=== PATIENT | female | born 1990 | race Two or more races ===

== ENCOUNTER 2018-08-10 03:26 | Inpatient (IN) | payer OTHER ==
[~2018-08-10] VITALS: Ht 162.6 cm; Wt 104.3 kg
[2018-08-10] VITALS (11 sets, daily range): BP systolic 107–168; BP diastolic 56–105
[2018-08-10 04:09] LABS: BASO # 0.1 x10^3/uL (0.0-0.2); BASO % 0 % (0-3); EOS % 0 % (0-3); HEMATOCRIT 35.6 % (36.0-47.0); LYMPH # 1.2 x10^3/uL (1.0-4.8); LYMPH % 5 % (24-48); MEAN CORPUSCULAR HEMOGLOBIN 22 pg (25-35); MEAN CORPUSCULAR HGB CONC 31 g/dL (31-37); MEAN CORPUSCULAR VOLUME 70 fL (79-100); MONO # 0.5 x10^3/uL (0.0-1.1); MONO % 2 % (0-9); NEUT # 22.8 x10^3uL (1.8-7.7); NEUT % 93 % (31-73); PLATELET COUNT 336 x10^3/uL (140-400); RED BLOOD COUNT 5.08 x10^6/uL (3.50-5.40); RED CELL DISTRIBUTION WIDTH 18.1 % (11.5-14.5); WHITE BLOOD COUNT 24.6 x10^3/uL (4.0-11.0)
[2018-08-10] MEDS ORDERED: KETOROLAC 15 MG/ML VIAL. IV ONE (04:15)
[2018-08-10] MEDS ORDERED: IV NORMAL SALINE 1000ML BAG 1,000 ML IV ONE ×2 (04:15→07:15)
[2018-08-10] MEDS ORDERED: METOCLOPRAMIDE HCL 10 MG/2 ML VIAL. IV ONE (04:15)
[2018-08-10 04:17] LABS: CALCIUM 9.6 mg/dL (8.5-10.1); GFR 65.6; POTASSIUM 4.1 mmol/L (3.5-5.1)
[2018-08-10 04:20] LABS: BILIRUBIN,URINE NEGATIVE (NEG); CLARITY,URINE CLEAR; COLOR,URINE YELLOW; NITRITE,URINE NEGATIVE (NEG); PH,URINE 6.5; PROTEIN,URINE NEGATIVE (NEG-TRACE); UROBILINOGEN,URINE 0.2 mg/dL (0.2 mg/dL)
[2018-08-10 04:26] LABS: BACTERIA,URINE MODERATE /HPF (0-FEW); RBC,URINE >40 /HPF (0-2); SQUAMOUS EPITHELIAL CELL,UR MANY /LPF
--- NOTE | 2018-08-10 04:32 | RAD ---
INDICATION: right flank pain; eval for ureteral calculi COMPARISON: None. TECHNIQUE: Axial CT images obtained through the abdomen and pelvis without contrast. Limited assessment of solid organ structures and vasculature secondary to lack of intravenous contrast.. One or more of the following individualized dose reduction techniques were utilized for this examination: 1. Automated exposure control; 2. Adjustment of the mA and/or kV according to patient size; 3. Use of iterative reconstruction technique. FINDINGS: Abdominal aorta is not well evaluated given lack of intravenous contrast. No intrahepatic bile duct dilation. There is some high density material within the gallbladder. Poor evaluation of pancreas without contrast. Spleen unremarkable. Left sided hydronephrosis and hydroureter with calcification within the left hemipelvis at expected location of left distal ureter measuring up to about 8 x 5 mm. Urinary bladder is largely decompressed. Mild prominence of the right renal pelvis as well. There are some tiny calcifications within the right hemipelvis. Cannot follow the ureter all the way through the pelvis. Small fat-containing umbilical hernia. The appendix measures up to approximately 5 mm without definite adjacent inflammatory changes at this time. Degenerative changes of the spine are suspected with early osteophyte formation and mild disc protrusions IMPRESSION: 1. Left-sided hydronephrosis and hydroureter with a calcification in the left hemipelvis which is concerning for a left distal ureter stone. 2. There is also some mild prominence of the right renal pelvis with a couple of tiny calcifications in the right hemipelvis. These tiny calcifications could be within the soft tissues however it would be difficult to exclude a tiny right distal ureter stone given this finding. Electronically signed by: Shelton Almonte MD (08/10/2018 4:29 AM) [facility]
[2018-08-10 04:36] LABS: ALBUMIN 3.5 g/dL (3.4-5.0); ALBUMIN/GLOBULIN RATIO 0.7 (1.0-1.7); MAGNESIUM 2.2 mg/dL (1.8-2.4); TOTAL BILIRUBIN 0.2 mg/dL (0.2-1.0); TOTAL PROTEIN 8.4 g/dL (6.4-8.2)
--- NOTE | 2018-08-10 04:39 | PHYS DOC ---
Past Medical History Past Medical History: No Pertinent History Past Surgical History: Other Additional Past Surgical Histo: Cyst removal from Left axilla Smoking: Cigarettes Alcohol Use: None Drug Use: None Adult General Chief Complaint Chief Complaint: ABDOMINAL PAIN HPI HPI 28 y/o female presents with report of bilateral lower back pain with radiation to abdomen which is worse on right x 1 day. Reports pain is "sharp and cramping ". Reports pain has progressively become worse. Denies known trauma. Reports associated nausea and vomiting. Denies fever/chills. Denies rash. Denies . Reports has increased urinary frequency. Review of Systems Review of Systems Constitutional: Denies fever or chills; generalized malaise Eyes: Denies change in visual acuity, redness, or eye pain [] HENT: Denies nasal congestion or sore throat [] Respiratory: Denies cough or shortness of breath [] Cardiovascular: Denies chest pain or palpitations GI: Reports abdominal pain, nausea, vomiting; denies diarrhea [] : Denies dysuria or hematuria; reports increased urinary frequency Musculoskeletal: Reports back pain; denies deformity Integument: Denies rash or skin lesions [] Neurologic: Denies headache, focal weakness or sensory changes [] Complete systems were reviewed and found to be within normal limits, except as documented in this note. Current Medications Current Medications Current Medications Medications (Trade) Dose Ordered Sig/Allison Start Time Stop Time Status Last Admin Dose Admin Fentanyl Citrate (Fentanyl 2ml Vial) 50 mcg PRN Q2HR PRN 08/10/18 05:00 Ketorolac Tromethamine (Toradol 15mg Vial) 15 mg 1X ONCE 08/10/18 04:15 08/10/18 04:16 DC 08/10/18 04:18 15 MG Metoclopramide HCl (Reglan Vial) 10 mg 1X ONCE 08/10/18 04:15 08/10/18 04:16 DC 08/10/18 04:18 10 MG Ondansetron HCl (Zofran) 4 mg PRN Q8HRS PRN 08/10/18 05:00 08/11/18 04:59 Sodium Chloride 1,000 ml @ 1,000 mls/hr 1X ONCE 08/10/18 04:15 08/10/18 05:14 DC 08/10/18 04:17 1,000 MLS/HR Tamsulosin HCl (Flomax) 0.4 mg 1X ONCE 08/10/18 05:00 08/10/18 05:01 DC 08/10/18 04:58 0.4 MG Allergies Allergies Allergies Coded Allergies Type Severity Reaction Last Updated Verified No Known Drug Allergies 08/10/18 No Physical Exam Physical Exam Constitutional: Well developed, well nourished, uncomfortable, non-toxic appearance. [] HENT: Normocephalic, atraumatic, oropharynx moist Eyes: PERRL, EOMI, conjunctiva normal, no discharge. [] Neck: Normal range of motion, no tenderness, supple Cardiovascular: Heart rate regular rhythm, no murmur [] Lungs & Thorax: Bilateral breath sounds clear to auscultation [] Abdomen: Soft, lower abdominal tenderness on palpation Skin: Warm, dry, no erythema, no rash. [] Back: No tenderness, no CVA tenderness. [] Extremities: No tenderness, ROM intact, no edema. [] Neurologic: Alert and oriented X 3, normal motor function, normal sensory function, no focal deficits noted. [] Psychologic: Affect normal, judgement normal, mood normal. [] Current Patient Data Vital Signs Vital Signs Date Time Temp Pulse Resp B/P (MAP) Pulse Ox O2 Delivery O2 Flow Rate FiO2 08/10/18 05:14 69 178/85 (116) 95 Room Air 08/10/18 03:30 98.1 18 98.1 Lab Values Laboratory Tests Test 08/10/18 03:31 08/10/18 03:35 08/10/18 03:55 Urine Collection Type Unknown Urine Color Yellow Urine Clarity Clear Urine pH 6.5 Urine Specific [place] 1.025 Urine Protein Negative mg/dL (NEG-TRACE) Urine Glucose (UA) Negative mg/dL (NEG) Urine Ketones (Stick) Negative mg/dL (NEG) Urine Blood Large (NEG) Urine Nitrite Negative (NEG) Urine Bilirubin Negative (NEG) Urine Urobilinogen Dipstick 0.2 mg/dL (0.2 mg/dL) Urine Leukocyte Esterase Small (NEG) Urine RBC >40 /HPF (0-2) Urine WBC 5-10 /HPF (0-4) Urine Squamous Epithelial Cells Many /LPF Urine Bacteria Moderate /HPF (0-FEW) Urine Mucus Marked /LPF POC Urine HCG, Qualitative Hcg negative (Negative) White Blood Count 24.6 x10^3/uL (4.0-11.0) H Red Blood Count 5.08 x10^6/uL (3.50-5.40) Hemoglobin 11.0 g/dL (12.0-15.5) L Hematocrit 35.6 % (36.0-47.0) L Mean Corpuscular Volume 70 fL (79-100) L Mean Corpuscular Hemoglobin 22 pg (25-35) L Mean Corpuscular Hemoglobin Concent 31 g/dL (31-37) Red Cell Distribution Width 18.1 % (11.5-14.5) H Platelet Count 336 x10^3/uL (140-400) Neutrophils (%) (Auto) 93 % (31-73) H Lymphocytes (%) (Auto) 5 % (24-48) L Monocytes (%) (Auto) 2 % (0-9) Eosinophils (%) (Auto) 0 % (0-3) Basophils (%) (Auto) 0 % (0-3) Neutrophils # (Auto) 22.8 x10^3uL (1.8-7.7) H Lymphocytes # (Auto) 1.2 x10^3/uL (1.0-4.8) Monocytes # (Auto) 0.5 x10^3/uL (0.0-1.1) Eosinophils # (Auto) 0.0 x10^3/uL (0.0-0.7) Basophils # (Auto) 0.1 x10^3/uL (0.0-0.2) Segmented Neutrophils % 90 % (35-66) H Lymphocytes % 9 % (24-48) L Monocytes % 1 % (0-10) Platelet Estimate Adequate (ADEQUATE) Giant Platelets Occ Hypochromasia Mod Anisocytosis Slight Microcytosis Mod Sodium Level 139 mmol/L (136-145) Potassium Level 4.1 mmol/L (3.5-5.1) Chloride Level 103 mmol/L (98-107) Carbon Dioxide Level 24 mmol/L (21-32) Anion Gap 12 (6-14) Blood Urea Nitrogen 16 mg/dL (7-20) Creatinine 1.0 mg/dL (0.6-1.0) Estimated GFR (Cockcroft-Gault) 65.6 BUN/Creatinine Ratio 16 (6-20) Glucose Level 151 mg/dL (70-99) H Lactic Acid Level 2.1 mmol/L (0.4-2.0) H Calcium Level 9.6 mg/dL (8.5-10.1) Magnesium Level 2.2 mg/dL (1.8-2.4) Total Bilirubin 0.2 mg/dL (0.2-1.0) Aspartate Amino Transferase (AST) 21 U/L (15-37) Alanine Aminotransferase (ALT) 36 U/L (14-59) Alkaline Phosphatase 95 U/L (46-116) Total Protein 8.4 g/dL (6.4-8.2) H Albumin 3.5 g/dL (3.4-5.0) Albumin/Globulin Ratio 0.7 (1.0-1.7) L Lipase 65 U/L (73-393) L Laboratory Tests 08/10/18 03:55 Laboratory Tests 08/10/18 03:55 EKG EKG [] Radiology/Procedures Radiology/Procedures PROCEDURE: CT ABDOMEN PELVIS WO CONTRAST INDICATION: right flank pain; eval for ureteral calculi COMPARISON: None. TECHNIQUE: Axial CT images obtained through the abdomen and pelvis without contrast. Limited assessment of solid organ structures and vasculature secondary to lack of intravenous contrast.. One or more of the following individualized dose reduction techniques were utilized for this examination: 1. Automated exposure control; 2. Adjustment of the mA and/or kV according to patient size; 3. Use of iterative reconstruction technique. FINDINGS: Abdominal aorta is not well evaluated given lack of intravenous contrast. No intrahepatic bile duct dilation. There is some high density material within the gallbladder. Poor evaluation of pancreas without contrast. Spleen unremarkable. Left sided hydronephrosis and hydroureter with calcification within the left hemipelvis at expected location of left distal ureter measuring up to about 8 x 5 mm. Urinary bladder is largely decompressed. Mild prominence of the right renal pelvis as well. There are some tiny calcifications within the right hemipelvis. Cannot follow the ureter all the way through the pelvis. Small fat-containing umbilical hernia. The appendix measures up to approximately 5 mm without definite adjacent inflammatory changes at this time. Degenerative changes of the spine are suspected with early osteophyte formation and mild disc protrusions IMPRESSION: 1. Left-sided hydronephrosis and hydroureter with a calcification in the left hemipelvis which is concerning for a left distal ureter stone. 2. There is also some mild prominence of the right renal pelvis with a couple of tiny calcifications in the right hemipelvis. These tiny calcifications could be within the soft tissues however it would be difficult to exclude a tiny right distal ureter stone given this finding. Electronically signed by: Shelton Almonte MD (08/10/2018 4:29 AM) [facility] Course & Med Decision Making Course & Med Decision Making Pertinent Labs and Imaging studies reviewed. (See chart for details) Patient presents with report of low back pain with radiation to abdomen R>L. Patient with associated increased urinary frequency and N/V. Pain and N/V addressed. IVF hydration given. Labs obtained and posted to chart. UA with signs of infection vs contamination. Significant microscopic hematuria noted. WBC also significantly elevated. Lactic acid 2.1. BUN/Creat stable. Empiric antibiotics given. CT abd/pelvis with findings of obstructing distal ureteral calculi of 8mm. Patient does not meet SIRS criteria at this time. Flomax also provided. Patient requiring admission for further evaluation and treatment. Discussed with Dr. Le (hospitalist) who is in agreement with admission. Attempted to discuss with Dr. Garza (urology). Unable to contact prior to shift change/ transfer to the floor. Consult placed. Discussed findings and plan with patient , who acknowledges understanding and agreement. Dragon Disclaimer Dragon Disclaimer This electronic medical record was generated, in whole or in part, using a voice recognition dictation system. Departure Departure Impression: Primary Impression: Hydronephrosis with urinary obstruction due to ureteral calculus Additional Impressions: Leukocytosis Lactic acidosis Disposition: 09 ADMITTED INPATIENT Admitting Physician: Melissa eL Condition: STABLE Referrals: NO PCP (PCP) Problem Qualifiers Additional Impressions: Leukocytosis Leukocytosis type: unspecified Qualified Codes: D72.829 - Elevated white blood cell count, unspecified MINERVA MEYERS DO Aug 10, 2018 04:39
[2018-08-10] MEDS ORDERED: fentaNYL PF VIAL 100 MCG/2 ML VIAL IV PRN ×4 (05:00→12:00)
[2018-08-10] MEDS ORDERED: fentaNYL PF VIAL 100 MCG/2 ML VIAL IV ONE ×2 (05:00→09:15)
[2018-08-10] MEDS ORDERED: ONDANSETRON PF 4 MG/2 ML VIAL. IV PRN (05:00)
[2018-08-10] MEDS ORDERED: TAMSULOSIN 0.4 MG CAP.ER.24H. PO ONE (05:00)
[2018-08-10 05:01] LABS: % LYMPHS 9 % (24-48); % MONOS 1 % (0-10); % SEGS 90 % (35-66)
[2018-08-10 05:02] LABS: ANISOCYTOSIS SLIGHT; HYPOCHROMIA MOD; MICROCYTOSIS MOD; PLT ESTIMATE ADEQUATE (ADEQUATE)
[2018-08-10] MEDS ORDERED: MORPHINE SULFATE 4 MG/ML VIAL. IV ONE (05:45)
[2018-08-10] MEDS ORDERED: cefTRIAXone IV Push 1 GM VIAL. IVP ONE (06:00)
--- NOTE | 2018-08-10 07:28 | PDOC1 ---
History and Physical Date of Admission Date of Admission DATE: 08/10/18 TIME: 07:27 Source Source: Chart review, Patient History of Present Illness History of Present Illness Ms. Pascual, 28 y/o female admit with severe, 9/10 lower back pain with radiation to abdomen. Pain is bilat, worse on right, 24 hours of severe pain , she had stones before when she was , none since. Reports pain is "sharp and cramping". Reports associated nausea and vomiting. Denies fever/chills. Denies rash. Denies . + worse urinary frequency. Past Medical History Cardiovascular: No pertinent hx Pulmonary: No pertinent hx GI: No pertinent hx Heme/Onc: No pertinent hx Rheumatologic: No pertinent hx Infectious disease: No pertinent hx Renal/: No pertinent hx Family History Family History: No Significant Social History Smoke: # pack years ALCOHOL: none Drugs: None Current Problem List Problem List Problems Medical Problems: (1) Hydronephrosis with urinary obstruction due to ureteral calculus Status: Acute (2) Lactic acidosis Status: Acute (3) Leukocytosis Status: Acute Current Medications Current Medications Current Medications Ketorolac Tromethamine (Toradol 15mg Vial) 15 mg 1X ONCE IV Last administered on 08/10/18at 04:18; Start 08/10/18 at 04:15; Stop 08/10/18 at 04:16; Status DC Sodium Chloride 1,000 ml @ 1,000 mls/hr 1X ONCE IV Last administered on at 04:17; Start 08/10/18 at 04:15; Stop 08/10/18 at 05:14; Status DC Metoclopramide HCl (Reglan Vial) 10 mg 1X ONCE IV Last administered on at 04:18; Start 08/10/18 at 04:15; Stop 08/10/18 at 04:16; Status DC Tamsulosin HCl (Flomax) 0.4 mg 1X ONCE PO Last administered on 08/10/18at 04:58 ; Start 08/10/18 at 05:00; Stop 08/10/18 at 05:01; Status DC Fentanyl Citrate (Fentanyl 2ml Vial) 50 mcg 1X ONCE IV Last administered on at 04:59; Start 08/10/18 at 05:00; Stop 08/10/18 at 05:01; Status DC Ondansetron HCl (Zofran) 4 mg PRN Q8HRS PRN IV NAUSEA/VOMITING; Start 08/10/18 at 05:00; Stop 08/11/18 at 04:59 Fentanyl Citrate (Fentanyl 2ml Vial) 50 mcg PRN Q2HR PRN IV PAIN Last administered on 08/10/18at 07:17; Start 08/10/18 at 05:00 Morphine Sulfate (Morphine Sulfate) 4 mg 1X ONCE IV Last administered on at 05:43; Start 08/10/18 at 05:45; Stop 08/10/18 at 05:46; Status DC Ceftriaxone Sodium (Rocephin) 1 gm 1X ONCE IVP Last administered on 08/10/18at 06:01; Start 08/10/18 at 06:00; Stop 08/10/18 at 06:01; Status DC Sodium Chloride 1,000 ml @ 125 mls/hr 1X ONCE IV Last administered on at 07:21; Start 08/10/18 at 07:15; Stop 08/10/18 at 15:14 Allergies Allergies: Coded Allergies: No Known Drug Allergies (Unverified , 08/10/18) ROS General: No: Chills, Night Sweats, Fatigue, Malaise, Appetite, Other PSYCHOLOGICAL ROS: No: Anxiety, Behavioral Disorder, Concentration difficultie , Decreased libido, Depression, Disorientation, Hallucinations, Hostility, Irritablity, Memory difficulties, Mood Swings, Obsessive thoughts, Other Eyes: No Blurry vision, No Decreased vision, No Double vision, No Dry eyes, No Excessive tearing, No Eye Pain, No Itchy Eyes, No Loss of vision, No Photophobia , No Scotomata, No Uses contacts, No Uses glasses, No Other HEENT: No: Heacaches, Visual Changes, Hearing change, Nasal congestion, Nasal discharge, Oral lesions, Sinus pain, Sore Throat, Epistaxis, Sneezing, Snoring, Tinnitus, Vertigo, Vocal changes, Other Respiratory: No: Cough, Hemoptysis, Orthopnea, Pleuritic Pain, Shortness of breath, SOB with excertion, Sputum Changes, Stridor, Tachypnea, Wheezing, Other Cardiovascular: No Chest Pain, No Palpitations, No Orthopnea, No Paroxysmal Noc. Dyspnea, No Edema, No Lt Headedness, No Other Gastrointestinal: No Nausea, No Vomiting, No Abdominal Pain, No Diarrhea, No Constipation, No Melena, No Hematochezia, No Other Neurological: No Behavorial Changes, No Bowel/Bladder ControlChng, No Confusion , No Dizziness, No Gait Disturbance, No Headaches, No Impaired Coord/balance, No Memory Loss, No Numbness/Tingling, No Seizures, No Speech Problems, No Tremors, No Visual Changes, No Weakness, No Other Skin: No Dry Skin, No Eczema, No Hair Changes, No Lumps, No Mole Changes, No Mottling, No Nail Changes, No Pruritus, No Rash, No Skin Lesion Changes, No Other, No Acne Physical Exam General: Alert, Oriented X3, Cooperative, No acute distress HEENT: PERRLA, EOMI Lungs: Normal air movement Heart: no murmurs Abdomen: Normal bowel sounds, Soft Rectal Exam: not examined Extremities: No cyanosis, No edema, Normal pulses Skin: No rashes Neuro: Normal speech, Normal tone, Sensation intact Psych/Mental Status: Mood NL Vitals Vitals Vital Signs Date Time Temp Pulse Resp B/P (MAP) Pulse Ox O2 Delivery O2 Flow Rate FiO2 08/10/18 07:17 Room Air 08/10/18 06:15 99.6 99 22 168/105 (126) 96 99.6 Labs Labs Laboratory Tests Test 08/10/18 03:31 08/10/18 03:35 08/10/18 03:55 Urine Collection Type Unknown Urine Color Yellow Urine Clarity Clear Urine pH 6.5 Urine Specific [place] 1.025 Urine Protein Negative mg/dL (NEG-TRACE) Urine Glucose (UA) Negative mg/dL (NEG) Urine Ketones (Stick) Negative mg/dL (NEG) Urine Blood Large (NEG) Urine Nitrite Negative (NEG) Urine Bilirubin Negative (NEG) Urine Urobilinogen Dipstick 0.2 mg/dL (0.2 mg/dL) Urine Leukocyte Esterase Small (NEG) Urine RBC >40 /HPF (0-2) Urine WBC 5-10 /HPF (0-4) Urine Squamous Epithelial Cells Many /LPF Urine Bacteria Moderate /HPF (0-FEW) Urine Mucus Marked /LPF Bedside Urine HCG, Qualitative Hcg negative (Negative) White Blood Count 24.6 x10^3/uL (4.0-11.0) Red Blood Count 5.08 x10^6/uL (3.50-5.40) Hemoglobin 11.0 g/dL (12.0-15.5) Hematocrit 35.6 % (36.0-47.0) Mean Corpuscular Volume 70 fL (79-100) Mean Corpuscular Hemoglobin 22 pg (25-35) Mean Corpuscular Hemoglobin Concent 31 g/dL (31-37) Red Cell Distribution Width 18.1 % (11.5-14.5) Platelet Count 336 x10^3/uL (140-400) Neutrophils (%) (Auto) 93 % (31-73) Lymphocytes (%) (Auto) 5 % (24-48) Monocytes (%) (Auto) 2 % (0-9) Eosinophils (%) (Auto) 0 % (0-3) Basophils (%) (Auto) 0 % (0-3) Neutrophils # (Auto) 22.8 x10^3uL (1.8-7.7) Lymphocytes # (Auto) 1.2 x10^3/uL (1.0-4.8) Monocytes # (Auto) 0.5 x10^3/uL (0.0-1.1) Eosinophils # (Auto) 0.0 x10^3/uL (0.0-0.7) Basophils # (Auto) 0.1 x10^3/uL (0.0-0.2) Segmented Neutrophils % 90 % (35-66) Lymphocytes % 9 % (24-48) Monocytes % 1 % (0-10) Platelet Estimate Adequate (ADEQUATE) Giant Platelets Occ Hypochromasia Mod Anisocytosis Slight Microcytosis Mod Sodium Level 139 mmol/L (136-145) Potassium Level 4.1 mmol/L (3.5-5.1) Chloride Level 103 mmol/L (98-107) Carbon Dioxide Level 24 mmol/L (21-32) Anion Gap 12 (6-14) Blood Urea Nitrogen 16 mg/dL (7-20) Creatinine 1.0 mg/dL (0.6-1.0) Estimated GFR (Cockcroft-Gault) 65.6 BUN/Creatinine Ratio 16 (6-20) Glucose Level 151 mg/dL (70-99) Lactic Acid Level 2.1 mmol/L (0.4-2.0) Calcium Level 9.6 mg/dL (8.5-10.1) Magnesium Level 2.2 mg/dL (1.8-2.4) Total Bilirubin 0.2 mg/dL (0.2-1.0) Aspartate Amino Transf (AST/SGOT) 21 U/L (15-37) Alanine Aminotransferase (ALT/SGPT) 36 U/L (14-59) Alkaline Phosphatase 95 U/L (46-116) Total Protein 8.4 g/dL (6.4-8.2) Albumin 3.5 g/dL (3.4-5.0) Albumin/Globulin Ratio 0.7 (1.0-1.7) Lipase 65 U/L (73-393) Laboratory Tests Test 08/10/18 03:31 08/10/18 03:35 08/10/18 03:55 Urine Collection Type Unknown Urine Color Yellow Urine Clarity Clear Urine pH 6.5 Urine Specific [place] 1.025 Urine Protein Negative mg/dL (NEG-TRACE) Urine Glucose (UA) Negative mg/dL (NEG) Urine Ketones (Stick) Negative mg/dL (NEG) Urine Blood Large (NEG) Urine Nitrite Negative (NEG) Urine Bilirubin Negative (NEG) Urine Urobilinogen Dipstick 0.2 mg/dL (0.2 mg/dL) Urine Leukocyte Esterase Small (NEG) Urine RBC >40 /HPF (0-2) Urine WBC 5-10 /HPF (0-4) Urine Squamous Epithelial Cells Many /LPF Urine Bacteria Moderate /HPF (0-FEW) Urine Mucus Marked /LPF Bedside Urine HCG, Qualitative Hcg negative (Negative) White Blood Count 24.6 x10^3/uL (4.0-11.0) Red Blood Count 5.08 x10^6/uL (3.50-5.40) Hemoglobin 11.0 g/dL (12.0-15.5) Hematocrit 35.6 % (36.0-47.0) Mean Corpuscular Volume 70 fL (79-100) Mean Corpuscular Hemoglobin 22 pg (25-35) Mean Corpuscular Hemoglobin Concent 31 g/dL (31-37) Red Cell Distribution Width 18.1 % (11.5-14.5) Platelet Count 336 x10^3/uL (140-400) Neutrophils (%) (Auto) 93 % (31-73) Lymphocytes (%) (Auto) 5 % (24-48) Monocytes (%) (Auto) 2 % (0-9) Eosinophils (%) (Auto) 0 % (0-3) Basophils (%) (Auto) 0 % (0-3) Neutrophils # (Auto) 22.8 x10^3uL (1.8-7.7) Lymphocytes # (Auto) 1.2 x10^3/uL (1.0-4.8) Monocytes # (Auto) 0.5 x10^3/uL (0.0-1.1) Eosinophils # (Auto) 0.0 x10^3/uL (0.0-0.7) Basophils # (Auto) 0.1 x10^3/uL (0.0-0.2) Segmented Neutrophils % 90 % (35-66) Lymphocytes % 9 % (24-48) Monocytes % 1 % (0-10) Platelet Estimate Adequate (ADEQUATE) Giant Platelets Occ Hypochromasia Mod Anisocytosis Slight Microcytosis Mod Sodium Level 139 mmol/L (136-145) Potassium Level 4.1 mmol/L (3.5-5.1) Chloride Level 103 mmol/L (98-107) Carbon Dioxide Level 24 mmol/L (21-32) Anion Gap 12 (6-14) Blood Urea Nitrogen 16 mg/dL (7-20) Creatinine 1.0 mg/dL (0.6-1.0) Estimated GFR (Cockcroft-Gault) 65.6 BUN/Creatinine Ratio 16 (6-20) Glucose Level 151 mg/dL (70-99) Lactic Acid Level 2.1 mmol/L (0.4-2.0) Calcium Level 9.6 mg/dL (8.5-10.1) Magnesium Level 2.2 mg/dL (1.8-2.4) Total Bilirubin 0.2 mg/dL (0.2-1.0) Aspartate Amino Transf (AST/SGOT) 21 U/L (15-37) Alanine Aminotransferase (ALT/SGPT) 36 U/L (14-59) Alkaline Phosphatase 95 U/L (46-116) Total Protein 8.4 g/dL (6.4-8.2) Albumin 3.5 g/dL (3.4-5.0) Albumin/Globulin Ratio 0.7 (1.0-1.7) Lipase 65 U/L (73-393) VTE Prophylaxis Ordered VTE Prophylaxis Devices: No VTE Pharmacological Prophylaxi: Yes Assessment/Plan Assessment/Plan Acute abd and flank pain Renal colic SIRS, leukocytosis, UA looks OK, obesiety, BMI 39 admit ROSA CHISHOLM MD Aug 10, 2018 07:27
--- NOTE | 2018-08-10 07:45 | NUR ---
Pt arrived to unit prior to shift change. This RN completed admission assessment and called consult to Dr Garza. Allergies verified, Pt up ad raymond, NPO, call light in reach.
--- NOTE | 2018-08-10 09:24 | PDOC2 ---
XIOMYSOFIA Thuan CHECKER STOCKER 08/10/18 0924: UROLOGY CONSULT Date of Consult Date of Consult DATE: 08/10/18 TIME: 09:13 Identification/Chief Complaint Chief Complaint Flank pain/kidney stones Source Source: Caregiver, Chart review, Patient History of Present Illness Reason for Visit: This 28 year old female presented through the ER with left flank pain, although now she says she is having pain bilaterally in her lower abdomen and bilaterally across her flanks and rating is 8/10 in these areas. This is not the first time she has had a kidney stone. She had a kidney stone one other time a few years back durine a but she passed this one without much intervention. She does have some dysuria but has not seen any blood in her urine. Past Medical History Cardiovascular: No pertinent hx Pulmonary: No pertinent hx GI: No pertinent hx Heme/Onc: No pertinent hx Rheumatologic: No pertinent hx Infectious disease: No pertinent hx Renal/: No pertinent hx Grav: 2 Para: 2 Family History Family History: No Significant Social History # pack years ALCOHOL: none Drugs: None Current Problem List Problems: (1) Hydronephrosis with urinary obstruction due to ureteral calculus Current Medications Current Medications Current Medications Ceftriaxone Sodium (Rocephin) 1 gm 1X ONCE IVP Last administered on 08/10/18at 06:01; Start 08/10/18 at 06:00; Stop 08/10/18 at 06:01; Status DC Fentanyl Citrate (Fentanyl 2ml Vial) 50 mcg 1X ONCE IV Last administered on at 04:59; Start 08/10/18 at 05:00; Stop 08/10/18 at 05:01; Status DC Fentanyl Citrate (Fentanyl 2ml Vial) 50 mcg PRN Q2HR PRN IV PAIN Last administered on 08/10/18at 07:17; Start 08/10/18 at 05:00; Stop 08/10/18 at 09:02 ; Status DC Fentanyl Citrate (Fentanyl 2ml Vial) 75 mcg PRN Q2HR PRN IV PAIN; Start at 09:15 Fentanyl Citrate (Fentanyl 2ml Vial) 100 mcg 1X ONCE IV ; Start 08/10/18 at 09: 15; Stop 08/10/18 at 09:16 Ketorolac Tromethamine (Toradol 15mg Vial) 15 mg 1X ONCE IV Last administered on 08/10/18at 04:18; Start 08/10/18 at 04:15; Stop 08/10/18 at 04:16; Status DC Metoclopramide HCl (Reglan Vial) 10 mg 1X ONCE IV Last administered on at 04:18; Start 08/10/18 at 04:15; Stop 08/10/18 at 04:16; Status DC Morphine Sulfate (Morphine Sulfate) 4 mg 1X ONCE IV Last administered on at 05:43; Start 08/10/18 at 05:45; Stop 08/10/18 at 05:46; Status DC Ondansetron HCl (Zofran) 4 mg PRN Q8HRS PRN IV NAUSEA/VOMITING; Start 08/10/18 at 05:00; Stop 08/11/18 at 04:59 Sodium Chloride 1,000 ml @ 125 mls/hr 1X ONCE IV Last administered on at 07:21; Start 08/10/18 at 07:15; Stop 08/10/18 at 15:14 Sodium Chloride 1,000 ml @ 1,000 mls/hr 1X ONCE IV Last administered on at 04:17; Start 08/10/18 at 04:15; Stop 08/10/18 at 05:14; Status DC Tamsulosin HCl (Flomax) 0.4 mg 1X ONCE PO Last administered on 08/10/18at 04:58 ; Start 08/10/18 at 05:00; Stop 08/10/18 at 05:01; Status DC Allergies Allergies: Coded Allergies: No Known Drug Allergies (Unverified , 08/10/18) ROS Review Of Systems: CONSTITUTIONAL: No fever or chills EYES: No recent changes SKIN: No rash or itching CARDIOVASCULAR: No chest pain, syncope, palpitations, or edema RESPIRATORY: No SOB or cough GASTROINTESTINAL: + abdominal pain, bilateral flanks, bilateral lower abdominal NEUROLOGICAL: No headaches or weakness ENDOCRINE: No cold or heat intolerance GENITOURINARY: No urgency or frequency of urination MUSCULOSKELETAL: No back pain or joint pain LYMPHATICS: No enlarged lymph nodes PSYCHIATRIC: No anxiety or depression Physical Exam Physical Exam: General: Pleasant, mild distress from pain, well groomed Eyes: conjunctiva anicteric, eyes full range of motion ENT: moist oral mucosa, normal dentition Neck: Trachea midline, no masses Respiratory: unlabored breathing, not using accessory muscles, Back: Bilateral flank tenderness on CVA testing Abdomen: + tender bilateral lower quadrants. Skin: no rashes or skin lesions on visualized skin Psych: normal mood, affect. Alert and oriented x 3. Vitals VITALS Vital Signs Date Time Temp Pulse Resp B/P (MAP) Pulse Ox O2 Delivery O2 Flow Rate FiO2 08/10/18 07:17 Room Air 08/10/18 06:15 99.6 99 22 168/105 (126) 96 99.6 Labs Labs Laboratory Tests Test 08/10/18 03:31 08/10/18 03:35 08/10/18 03:55 08/10/18 08:10 Urine Collection Type Unknown Urine Color Yellow Urine Clarity Clear Urine pH 6.5 Urine Specific Pierce 1.025 Urine Protein Negative mg/dL (NEG-TRACE) Urine Glucose (UA) Negative mg/dL (NEG) Urine Ketones (Stick) Negative mg/dL (NEG) Urine Blood Large (NEG) Urine Nitrite Negative (NEG) Urine Bilirubin Negative (NEG) Urine Urobilinogen Dipstick 0.2 mg/dL (0.2 mg/dL) Urine Leukocyte Esterase Small (NEG) Urine RBC >40 /HPF (0-2) Urine WBC 5-10 /HPF (0-4) Urine Squamous Epithelial Cells Many /LPF Urine Bacteria Moderate /HPF (0-FEW) Urine Mucus Marked /LPF Bedside Urine HCG, Qualitative Hcg negative (Negative) White Blood Count 24.6 x10^3/uL (4.0-11.0) Red Blood Count 5.08 x10^6/uL (3.50-5.40) Hemoglobin 11.0 g/dL (12.0-15.5) Hematocrit 35.6 % (36.0-47.0) Mean Corpuscular Volume 70 fL (79-100) Mean Corpuscular Hemoglobin 22 pg (25-35) Mean Corpuscular Hemoglobin Concent 31 g/dL (31-37) Red Cell Distribution Width 18.1 % (11.5-14.5) Platelet Count 336 x10^3/uL (140-400) Neutrophils (%) (Auto) 93 % (31-73) Lymphocytes (%) (Auto) 5 % (24-48) Monocytes (%) (Auto) 2 % (0-9) Eosinophils (%) (Auto) 0 % (0-3) Basophils (%) (Auto) 0 % (0-3) Neutrophils # (Auto) 22.8 x10^3uL (1.8-7.7) Lymphocytes # (Auto) 1.2 x10^3/uL (1.0-4.8) Monocytes # (Auto) 0.5 x10^3/uL (0.0-1.1) Eosinophils # (Auto) 0.0 x10^3/uL (0.0-0.7) Basophils # (Auto) 0.1 x10^3/uL (0.0-0.2) Segmented Neutrophils % 90 % (35-66) Lymphocytes % 9 % (24-48) Monocytes % 1 % (0-10) Platelet Estimate Adequate (ADEQUATE) Giant Platelets Occ Hypochromasia Mod Anisocytosis Slight Microcytosis Mod Sodium Level 139 mmol/L (136-145) Potassium Level 4.1 mmol/L (3.5-5.1) Chloride Level 103 mmol/L (98-107) Carbon Dioxide Level 24 mmol/L (21-32) Anion Gap 12 (6-14) Blood Urea Nitrogen 16 mg/dL (7-20) Creatinine 1.0 mg/dL (0.6-1.0) Estimated GFR (Cockcroft-Gault) 65.6 BUN/Creatinine Ratio 16 (6-20) Glucose Level 151 mg/dL (70-99) Lactic Acid Level 2.1 mmol/L (0.4-2.0) 2.1 mmol/L (0.4-2.0) Calcium Level 9.6 mg/dL (8.5-10.1) Magnesium Level 2.2 mg/dL (1.8-2.4) Total Bilirubin 0.2 mg/dL (0.2-1.0) Aspartate Amino Transf (AST/SGOT) 21 U/L (15-37) Alanine Aminotransferase (ALT/SGPT) 36 U/L (14-59) Alkaline Phosphatase 95 U/L (46-116) Total Protein 8.4 g/dL (6.4-8.2) Albumin 3.5 g/dL (3.4-5.0) Albumin/Globulin Ratio 0.7 (1.0-1.7) Lipase 65 U/L (73-393) Laboratory Tests Test 08/10/18 03:31 08/10/18 03:35 08/10/18 03:55 08/10/18 08:10 Urine Collection Type Unknown Urine Color Yellow Urine Clarity Clear Urine pH 6.5 Urine Specific Pierce 1.025 Urine Protein Negative mg/dL (NEG-TRACE) Urine Glucose (UA) Negative mg/dL (NEG) Urine Ketones (Stick) Negative mg/dL (NEG) Urine Blood Large (NEG) Urine Nitrite Negative (NEG) Urine Bilirubin Negative (NEG) Urine Urobilinogen Dipstick 0.2 mg/dL (0.2 mg/dL) Urine Leukocyte Esterase Small (NEG) Urine RBC >40 /HPF (0-2) Urine WBC 5-10 /HPF (0-4) Urine Squamous Epithelial Cells Many /LPF Urine Bacteria Moderate /HPF (0-FEW) Urine Mucus Marked /LPF Bedside Urine HCG, Qualitative Hcg negative (Negative) White Blood Count 24.6 x10^3/uL (4.0-11.0) Red Blood Count 5.08 x10^6/uL (3.50-5.40) Hemoglobin 11.0 g/dL (12.0-15.5) Hematocrit 35.6 % (36.0-47.0) Mean Corpuscular Volume 70 fL (79-100) Mean Corpuscular Hemoglobin 22 pg (25-35) Mean Corpuscular Hemoglobin Concent 31 g/dL (31-37) Red Cell Distribution Width 18.1 % (11.5-14.5) Platelet Count 336 x10^3/uL (140-400) Neutrophils (%) (Auto) 93 % (31-73) Lymphocytes (%) (Auto) 5 % (24-48) Monocytes (%) (Auto) 2 % (0-9) Eosinophils (%) (Auto) 0 % (0-3) Basophils (%) (Auto) 0 % (0-3) Neutrophils # (Auto) 22.8 x10^3uL (1.8-7.7) Lymphocytes # (Auto) 1.2 x10^3/uL (1.0-4.8) Monocytes # (Auto) 0.5 x10^3/uL (0.0-1.1) Eosinophils # (Auto) 0.0 x10^3/uL (0.0-0.7) Basophils # (Auto) 0.1 x10^3/uL (0.0-0.2) Segmented Neutrophils % 90 % (35-66) Lymphocytes % 9 % (24-48) Monocytes % 1 % (0-10) Platelet Estimate Adequate (ADEQUATE) Giant Platelets Occ Hypochromasia Mod Anisocytosis Slight Microcytosis Mod Sodium Level 139 mmol/L (136-145) Potassium Level 4.1 mmol/L (3.5-5.1) Chloride Level 103 mmol/L (98-107) Carbon Dioxide Level 24 mmol/L (21-32) Anion Gap 12 (6-14) Blood Urea Nitrogen 16 mg/dL (7-20) Creatinine 1.0 mg/dL (0.6-1.0) Estimated GFR (Cockcroft-Gault) 65.6 BUN/Creatinine Ratio 16 (6-20) Glucose Level 151 mg/dL (70-99) Lactic Acid Level 2.1 mmol/L (0.4-2.0) 2.1 mmol/L (0.4-2.0) Calcium Level 9.6 mg/dL (8.5-10.1) Magnesium Level 2.2 mg/dL (1.8-2.4) Total Bilirubin 0.2 mg/dL (0.2-1.0) Aspartate Amino Transf (AST/SGOT) 21 U/L (15-37) Alanine Aminotransferase (ALT/SGPT) 36 U/L (14-59) Alkaline Phosphatase 95 U/L (46-116) Total Protein 8.4 g/dL (6.4-8.2) Albumin 3.5 g/dL (3.4-5.0) Albumin/Globulin Ratio 0.7 (1.0-1.7) Lipase 65 U/L (73-393) Images Images 1. Left-sided hydronephrosis and hydroureter with a calcification in the left hemipelvis which is concerning for a left distal ureter stone. 2. There is also some mild prominence of the right renal pelvis with a couple of tiny calcifications in the right hemipelvis. These tiny calcifications could be within the soft tissues however it would be difficult to exclude a tiny right distal ureter stone given this finding. Assessment/Plan Assessment/Plan Continue NPO status with exception of ice chips and sips of water with meds. Continue pain control, nausea control Continue IVF Nursing to strain urine. Discussed plan of care with attending RN and Dr. Smith who has accepted the patient for surgery Cipro director of instructional technology to OR Consents entered. SAMIA SMITH MD 08/10/18 1412: UROLOGY CONSULT Assessment/Plan Assessment/Plan 8mm left distal stone. uti leucocytosis will stent for left renal unit decompression. delayed URS once urine sterility is achieved. SOFIA STAUFFER APRN Aug 10, 2018 09:24 SAMIA SMITH MD Aug 10, 2018 14:12
[2018-08-10] MEDS ORDERED: PHENAZOPYRIDINE 200 MG TABLET. PO PRN (09:30)
--- NOTE | 2018-08-10 09:36 | NUR ---
SW reviewed pt's medical chart and evaluated for dc needs. Pt was admitted for back and abdominal pain. PT/OT has not been ordered. There are no dc needs at this time. SW will be available if pt's condition changes and dc planning is required.
--- NOTE | 2018-08-10 09:50 | NUR ---
Pt resting comfortably, reports her pain level has decreased. Fentanyl x1 order will not be administered at this time.
[2018-08-10] MEDS ORDERED: IV RINGERS,LACTATED 1000ML 1,000 ML IV SCH (11:57)
[2018-08-10] MEDS ORDERED: LIDOCAINE 1% PF 2 ML VIAL. ID PRN (12:00)
[2018-08-10] MEDS ORDERED: MORPHINE SULFATE 4 MG/ML VIAL. IV PRN (12:00)
[2018-08-10] MEDS ORDERED: PROCHLORPERAZINE 10 MG/2 ML VIAL. IV PRN (12:00)
[2018-08-10] MEDS ORDERED: HYDROmorphone 2 MG/ML VIAL IV PRN (12:00)
[2018-08-10] MEDS ORDERED: CIPROFLOXACIN 400MG PREMIX 200 ML IV ONE (13:30)
[2018-08-10] MEDS ORDERED: LIDOCAINE 2% JELLY 6ML IN APPLICATOR. ONE ×2 (14:08→14:09)
[2018-08-10] MEDS ORDERED: IOHEXOL 300 MG/ML 100ML VIAL. ONE (14:08)
[2018-08-10] MEDS ORDERED: fentaNYL PF VIAL 100 MCG/2 ML VIAL ONE (14:38)
[2018-08-10] MEDS ORDERED: SEVOFLURANE 31 TO 60 MINUTES. IH ONE (14:47)
[2018-08-10] MEDS ORDERED: LIDOCAINE 2% PF 5 ML VIAL. ONE (14:47)
[2018-08-10] MEDS ORDERED: DEXAMETHASONE SOD PHOS 20 MG/5 ML VIAL. ONE (14:47)
[2018-08-10] MEDS ORDERED: ONDANSETRON PF 4 MG/2 ML VIAL. ONE (14:47)
[2018-08-10] MEDS ORDERED: PROPOFOL 20 ML IV ONE (14:47)
--- NOTE | 2018-08-10 14:52 | PDOC4 ---
OPERATIVE NOTE Date: Date: Aug 10, 2018 Pre-Op Diagnosis: left ureter stone uti Post-Op Diagnosis: same Procedure Performed: left rpg left stent Surgeon: Anesthesia Type: ga Blood Loss: 0ml Specimans Obtained: none Findings: left distal stone pus behind stone Complications: none evident SAMIA ZACARIAS MD Aug 10, 2018 14:52
--- NOTE | 2018-08-10 15:18 | OP ---
DATE OF SURGERY: 08/10/2018 PREOPERATIVE DIAGNOSES: Left ureter stone, urinary tract infection and leukocytosis. POSTOPERATIVE DIAGNOSES: Left ureter stone, urinary tract infection and leukocytosis. PROCEDURE: 1. Left retrograde pyelography interpretation. 2. Left stent placement. SURGEON: Roslyn Smith MD. ANESTHESIA: General. CONDITION: Stable. COMPLICATIONS: None. ESTIMATED BLOOD LOSS: Zero. PROCEDURE IN DETAIL: The patient was taken back to the procedure room and placed under general anesthesia in supine position per the protocol. She was prepped and draped in usual sterile fashion in dorsal lithotomy position. She was prepped and draped in the usual sterile fashion in dorsal lithotomy position. Timeout was performed. SCDs were attached. IV antibiotics were administered. A 21-Finnish rigid cystoscope was advanced per urethra into the bladder. A systemic review of the bladder visualized no foreign body, stone or tumors. She had cloudy urine, which was drained. Left hemitrigone was visualized with ureteral orifice in orthotopic and patent position. This was cannulated with a 5-Finnish open-ended ureteral catheter. A gentle retrograde pyelography was visualized distal ureter filling defect with [id number] hydronephrosis. A sensor wire was placed over the Poll[place], past the stone into the kidney. A 6 x 26 stent was placed with purulent urinary return after we went past the stone, the bladder was emptied. The patient was awakened, taken to PACU in stable condition. DISPOSITION: We will treat for the UTI for the next 2 weeks. She will come back as outpatient for delayed ureteroscopy once urine sterility is achieved. ROSLYN SMITH MD DR: FERNANDO/nts JOB#: [id number] / [id number]
[2018-08-10] MEDS: IV NORMAL SALINE 1000ML BAG 1,000 ML IV SCH (16:15)
--- NOTE | 2018-08-10 16:15 | NUR ---
Pt to OR by bed at 1325 and returned by bed at 1615. Report given to and received from LILLIAN Mendoza. Orders for IVFs and oral antibiotics requested to Dr Le. Frequent vital signs initiated, food and fluid offered. Pt denies pain or discomfort at time of arrival from PACU.
[2018-08-10] MEDS: CIPROFLOXACIN HCL 250 MG TABLET. PO SCH (20:42)
[2018-08-11] MEDS: IV NORMAL SALINE 1000ML BAG 1,000 ML IV SCH ×3 (00:13→22:15)
[2018-08-11 03:08] VITALS: BP 106/65
[2018-08-11 05:10] LABS: BASO % 0 % (0-3); EOS % 0 % (0-3); HEMATOCRIT 31.1 % (36.0-47.0); HEMOGLOBIN 9.7 g/dL (12.0-15.5); LYMPH # 1.6 x10^3/uL (1.0-4.8); LYMPH % 6 % (24-48); MEAN CORPUSCULAR HEMOGLOBIN 22 pg (25-35); MEAN CORPUSCULAR HGB CONC 31 g/dL (31-37); MEAN CORPUSCULAR VOLUME 71 fL (79-100); MONO # 1.6 x10^3/uL (0.0-1.1); MONO % 6 % (0-9); NEUT # 25.3 x10^3uL (1.8-7.7); NEUT % 89 % (31-73); PLATELET COUNT 231 x10^3/uL (140-400); RED CELL DISTRIBUTION WIDTH 18.7 % (11.5-14.5); WHITE BLOOD COUNT 28.5 x10^3/uL (4.0-11.0)
[2018-08-11 05:27] LABS: CALCIUM 8.5 mg/dL (8.5-10.1); CREATININE 0.7 mg/dL (0.6-1.0); GFR 98.9
[2018-08-11 07:00] VITALS: BP 139/76
--- NOTE | 2018-08-11 08:30 | NUR ---
Pt triggered positive for sepsis again this morning, IPC and Dr Smith who was on unit at the time notified. Orders received from Dr Smith to start Pt on IV Gentamicin per pharmacy.
[2018-08-11] MEDS: CIPROFLOXACIN HCL 250 MG TABLET. PO SCH ×2 (08:51→21:00)
[2018-08-11] MEDS: oxyCODONE/APAP 5/325 1 TAB TABLET PO PRN ×3 (08:59→20:59)
--- NOTE | 2018-08-11 09:13 | PDOC ---
Progress Note Subjective Subjective feels better. AF VSSN. Wants to go home. ROS ROS No nausea No vomiting No pain No rash Vital Sign Vital Signs Vital Signs Date Time Temp Pulse Resp B/P (MAP) Pulse Ox O2 Delivery O2 Flow Rate FiO2 08/11/18 08:59 Room Air 08/11/18 03:08 98.3 62 18 106/65 (79) 95 98.3 08/10/18 15:15 3 Physical Exam PHYSICAL EXAM GENERAL: NAD, Alert HEENT: PERRL, OC/OP NECK: Supple, no JVD, no LN LUNGS: Clear HEART: S1S2, no gallop, no murmur ABD: Soft, NT, no organomegaly, no rebound EXT: No edema, no cyanosis DIRECTOR OF OUTSIDE SALES: Alert, oriented x 3, no focal neurologic deficit SKIN: No rash IV: ok Labs Lab Laboratory Tests Test 08/11/18 04:30 White Blood Count 28.5 x10^3/uL (4.0-11.0) Red Blood Count 4.40 x10^6/uL (3.50-5.40) Hemoglobin 9.7 g/dL (12.0-15.5) Hematocrit 31.1 % (36.0-47.0) Mean Corpuscular Volume 71 fL (79-100) Mean Corpuscular Hemoglobin 22 pg (25-35) Mean Corpuscular Hemoglobin Concent 31 g/dL (31-37) Red Cell Distribution Width 18.7 % (11.5-14.5) Platelet Count 231 x10^3/uL (140-400) Neutrophils (%) (Auto) 89 % (31-73) Lymphocytes (%) (Auto) 6 % (24-48) Monocytes (%) (Auto) 6 % (0-9) Eosinophils (%) (Auto) 0 % (0-3) Basophils (%) (Auto) 0 % (0-3) Neutrophils # (Auto) 25.3 x10^3uL (1.8-7.7) Lymphocytes # (Auto) 1.6 x10^3/uL (1.0-4.8) Monocytes # (Auto) 1.6 x10^3/uL (0.0-1.1) Eosinophils # (Auto) 0.0 x10^3/uL (0.0-0.7) Basophils # (Auto) 0.0 x10^3/uL (0.0-0.2) Sodium Level 140 mmol/L (136-145) Potassium Level 4.0 mmol/L (3.5-5.1) Chloride Level 106 mmol/L (98-107) Carbon Dioxide Level 23 mmol/L (21-32) Anion Gap 11 (6-14) Blood Urea Nitrogen 12 mg/dL (7-20) Creatinine 0.7 mg/dL (0.6-1.0) Estimated GFR (Cockcroft-Gault) 98.9 Glucose Level 113 mg/dL (70-99) Calcium Level 8.5 mg/dL (8.5-10.1) Objective Assessment uti ureter stone s/p stent Plan Plan of Care Still wbc 28. recommend BW adjusted iv gentamicin with cipro. Needs cx specific abx x2 weeks. Will schedule as OP for definitive [facility] SAMIA ZACARIAS MD Aug 11, 2018 09:13
[2018-08-11] MEDS ORDERED: GENTAMICIN SULFATE IV ONE ×2 (09:30)
[2018-08-11] MEDS ORDERED: DEXTROSE 5% IV ONE ×2 (09:30)
[2018-08-11 11:00] VITALS: BP 134/81
[2018-08-11] MEDS: GENTAMICIN PER PHARMACY. MC PRN ×2 (13:11→20:02)
--- NOTE | 2018-08-11 13:16 | NUR ---
Pharmacy Aminoglycoside Dosing Note S: Consulted to monitor and dose Gentamicin started 08/11/18 O:STEFANIE BELLA is a 28 year old F with UTI Height: 5 feet, 4 inches Weight: 104.3kg [place] Weight: 54.70 Adjusted Weight: 74.54 Dosing Weight:Adjusted Other Antibiotics: Cipro 500mg po bid LABS: BUN: 12 SCr:0.7 CrCl: >100 WBC: 28.5 Platelet: 231 Tmax (past 24 hours): 100.5 I/O: 3320/- Microbiology: Blood: NGTD (1 day) Drug Levels: Last dose given 08/11/18 at 0951 A: Based on weight and renal function P: 1. Dose Gentamicin 5 mg/kg IV One Time then dose per nomogram 2. Follow up random levels on 08/11/18 at 1999 3. Pharmacy will continue to monitor, follow and adjust therapy as needed. Eliana Samano RPH, 08/11/18 [id number]
[2018-08-11 15:00] VITALS: BP 132/72
--- NOTE | 2018-08-11 15:46 | PDOC ---
PROGRESS NOTES Chief Complaint Chief Complaint Acute abd and flank pain Renal colic SIRS, worsening leukocytosis, may be having a component of reactive leukocytosisdue to procedure obesiety, BMI 39 Plan:add gentmycin continue with cipro po reassess in the am labs in am pain mangement. History of Present Illness History of Present Illness Patient in no acute distress at the time of my evaluation she is wanting to go home. I have explained the results of her laboratory data and the need to increase coverage with gentamicin reassessing her in the a.m. and requesting labs in the a.m. as well. All concerns were addressed to the best of my abilities no other questions Vitals Vitals Vital Signs Date Time Temp Pulse Resp B/P (MAP) Pulse Ox O2 Delivery O2 Flow Rate FiO2 08/11/18 14:52 97 Room Air 08/11/18 11:00 99.6 103 18 134/81 (98) 99.6 08/10/18 15:15 3 Physical Exam Physical Exam GENERAL: NAD, Alert HEENT: PERRL, OC/OP NECK: Supple, no JVD, no LN LUNGS: Clear HEART: S1S2, no gallop, no murmur ABD: Soft, NT, no organomegaly, no rebound EXT: No edema, no cyanosis [employer] EFFICIENCY: Alert, oriented x 3, no focal neurologic deficit SKIN: No rash IV: ok General: Alert, Oriented X3, Cooperative, No acute distress Abdomen: Normal bowel sounds, Soft Extremities: No cyanosis, No edema, Normal pulses Skin: No rashes Labs LABS Laboratory Tests Test 08/11/18 04:30 08/11/18 11:45 White Blood Count 28.5 x10^3/uL (4.0-11.0) Red Blood Count 4.40 x10^6/uL (3.50-5.40) Hemoglobin 9.7 g/dL (12.0-15.5) Hematocrit 31.1 % (36.0-47.0) Mean Corpuscular Volume 71 fL (79-100) Mean Corpuscular Hemoglobin 22 pg (25-35) Mean Corpuscular Hemoglobin Concent 31 g/dL (31-37) Red Cell Distribution Width 18.7 % (11.5-14.5) Platelet Count 231 x10^3/uL (140-400) Neutrophils (%) (Auto) 89 % (31-73) Lymphocytes (%) (Auto) 6 % (24-48) Monocytes (%) (Auto) 6 % (0-9) Eosinophils (%) (Auto) 0 % (0-3) Basophils (%) (Auto) 0 % (0-3) Neutrophils # (Auto) 25.3 x10^3uL (1.8-7.7) Lymphocytes # (Auto) 1.6 x10^3/uL (1.0-4.8) Monocytes # (Auto) 1.6 x10^3/uL (0.0-1.1) Eosinophils # (Auto) 0.0 x10^3/uL (0.0-0.7) Basophils # (Auto) 0.0 x10^3/uL (0.0-0.2) Sodium Level 140 mmol/L (136-145) Potassium Level 4.0 mmol/L (3.5-5.1) Chloride Level 106 mmol/L (98-107) Carbon Dioxide Level 23 mmol/L (21-32) Anion Gap 11 (6-14) Blood Urea Nitrogen 12 mg/dL (7-20) Creatinine 0.7 mg/dL (0.6-1.0) Estimated GFR (Cockcroft-Gault) 98.9 Glucose Level 113 mg/dL (70-99) Calcium Level 8.5 mg/dL (8.5-10.1) Lactic Acid Level 0.8 mmol/L (0.4-2.0) Review of Systems Review of Systems Positive aspirate GI otherwise 14 point review of system is negative Assessment and Plan Assessmemt and Plan Problems Medical Problems: (1) Hydronephrosis with urinary obstruction due to ureteral calculus Status: Acute (2) Lactic acidosis Status: Acute (3) Leukocytosis Status: Acute Comment Review of Relevant I have reviewed the following items christy (where applicable) has been applied. Labs Laboratory Tests Test 08/10/18 03:31 08/10/18 03:35 08/10/18 03:55 08/10/18 08:10 Urine Collection Type Unknown Urine Color Yellow Urine Clarity Clear Urine pH 6.5 Urine Specific [place] 1.025 Urine Protein Negative mg/dL (NEG-TRACE) Urine Glucose (UA) Negative mg/dL (NEG) Urine Ketones (Stick) Negative mg/dL (NEG) Urine Blood Large (NEG) Urine Nitrite Negative (NEG) Urine Bilirubin Negative (NEG) Urine Urobilinogen Dipstick 0.2 mg/dL (0.2 mg/dL) Urine Leukocyte Esterase Small (NEG) Urine RBC >40 /HPF (0-2) Urine WBC 5-10 /HPF (0-4) Urine Squamous Epithelial Cells Many /LPF Urine Bacteria Moderate /HPF (0-FEW) Urine Mucus Marked /LPF Bedside Urine HCG, Qualitative Hcg negative (Negative) White Blood Count 24.6 x10^3/uL (4.0-11.0) Red Blood Count 5.08 x10^6/uL (3.50-5.40) Hemoglobin 11.0 g/dL (12.0-15.5) Hematocrit 35.6 % (36.0-47.0) Mean Corpuscular Volume 70 fL (79-100) Mean Corpuscular Hemoglobin 22 pg (25-35) Mean Corpuscular Hemoglobin Concent 31 g/dL (31-37) Red Cell Distribution Width 18.1 % (11.5-14.5) Platelet Count 336 x10^3/uL (140-400) Neutrophils (%) (Auto) 93 % (31-73) Lymphocytes (%) (Auto) 5 % (24-48) Monocytes (%) (Auto) 2 % (0-9) Eosinophils (%) (Auto) 0 % (0-3) Basophils (%) (Auto) 0 % (0-3) Neutrophils # (Auto) 22.8 x10^3uL (1.8-7.7) Lymphocytes # (Auto) 1.2 x10^3/uL (1.0-4.8) Monocytes # (Auto) 0.5 x10^3/uL (0.0-1.1) Eosinophils # (Auto) 0.0 x10^3/uL (0.0-0.7) Basophils # (Auto) 0.1 x10^3/uL (0.0-0.2) Segmented Neutrophils % 90 % (35-66) Lymphocytes % 9 % (24-48) Monocytes % 1 % (0-10) Platelet Estimate Adequate (ADEQUATE) Giant Platelets Occ Hypochromasia Mod Anisocytosis Slight Microcytosis Mod Sodium Level 139 mmol/L (136-145) Potassium Level 4.1 mmol/L (3.5-5.1) Chloride Level 103 mmol/L (98-107) Carbon Dioxide Level 24 mmol/L (21-32) Anion Gap 12 (6-14) Blood Urea Nitrogen 16 mg/dL (7-20) Creatinine 1.0 mg/dL (0.6-1.0) Estimated GFR (Cockcroft-Gault) 65.6 BUN/Creatinine Ratio 16 (6-20) Glucose Level 151 mg/dL (70-99) Lactic Acid Level 2.1 mmol/L (0.4-2.0) 2.1 mmol/L (0.4-2.0) Calcium Level 9.6 mg/dL (8.5-10.1) Magnesium Level 2.2 mg/dL (1.8-2.4) Total Bilirubin 0.2 mg/dL (0.2-1.0) Aspartate Amino Transf (AST/SGOT) 21 U/L (15-37) Alanine Aminotransferase (ALT/SGPT) 36 U/L (14-59) Alkaline Phosphatase 95 U/L (46-116) Total Protein 8.4 g/dL (6.4-8.2) Albumin 3.5 g/dL (3.4-5.0) Albumin/Globulin Ratio 0.7 (1.0-1.7) Lipase 65 U/L (73-393) Test 08/11/18 04:30 08/11/18 11:45 White Blood Count 28.5 x10^3/uL (4.0-11.0) Red Blood Count 4.40 x10^6/uL (3.50-5.40) Hemoglobin 9.7 g/dL (12.0-15.5) Hematocrit 31.1 % (36.0-47.0) Mean Corpuscular Volume 71 fL (79-100) Mean Corpuscular Hemoglobin 22 pg (25-35) Mean Corpuscular Hemoglobin Concent 31 g/dL (31-37) Red Cell Distribution Width 18.7 % (11.5-14.5) Platelet Count 231 x10^3/uL (140-400) Neutrophils (%) (Auto) 89 % (31-73) Lymphocytes (%) (Auto) 6 % (24-48) Monocytes (%) (Auto) 6 % (0-9) Eosinophils (%) (Auto) 0 % (0-3) Basophils (%) (Auto) 0 % (0-3) Neutrophils # (Auto) 25.3 x10^3uL (1.8-7.7) Lymphocytes # (Auto) 1.6 x10^3/uL (1.0-4.8) Monocytes # (Auto) 1.6 x10^3/uL (0.0-1.1) Eosinophils # (Auto) 0.0 x10^3/uL (0.0-0.7) Basophils # (Auto) 0.0 x10^3/uL (0.0-0.2) Sodium Level 140 mmol/L (136-145) Potassium Level 4.0 mmol/L (3.5-5.1) Chloride Level 106 mmol/L (98-107) Carbon Dioxide Level 23 mmol/L (21-32) Anion Gap 11 (6-14) Blood Urea Nitrogen 12 mg/dL (7-20) Creatinine 0.7 mg/dL (0.6-1.0) Estimated GFR (Cockcroft-Gault) 98.9 Glucose Level 113 mg/dL (70-99) Calcium Level 8.5 mg/dL (8.5-10.1) Lactic Acid Level 0.8 mmol/L (0.4-2.0) Laboratory Tests Test 08/11/18 04:30 08/11/18 11:45 White Blood Count 28.5 x10^3/uL (4.0-11.0) Red Blood Count 4.40 x10^6/uL (3.50-5.40) Hemoglobin 9.7 g/dL (12.0-15.5) Hematocrit 31.1 % (36.0-47.0) Mean Corpuscular Volume 71 fL (79-100) Mean Corpuscular Hemoglobin 22 pg (25-35) Mean Corpuscular Hemoglobin Concent 31 g/dL (31-37) Red Cell Distribution Width 18.7 % (11.5-14.5) Platelet Count 231 x10^3/uL (140-400) Neutrophils (%) (Auto) 89 % (31-73) Lymphocytes (%) (Auto) 6 % (24-48) Monocytes (%) (Auto) 6 % (0-9) Eosinophils (%) (Auto) 0 % (0-3) Basophils (%) (Auto) 0 % (0-3) Neutrophils # (Auto) 25.3 x10^3uL (1.8-7.7) Lymphocytes # (Auto) 1.6 x10^3/uL (1.0-4.8) Monocytes # (Auto) 1.6 x10^3/uL (0.0-1.1) Eosinophils # (Auto) 0.0 x10^3/uL (0.0-0.7) Basophils # (Auto) 0.0 x10^3/uL (0.0-0.2) Sodium Level 140 mmol/L (136-145) Potassium Level 4.0 mmol/L (3.5-5.1) Chloride Level 106 mmol/L (98-107) Carbon Dioxide Level 23 mmol/L (21-32) Anion Gap 11 (6-14) Blood Urea Nitrogen 12 mg/dL (7-20) Creatinine 0.7 mg/dL (0.6-1.0) Estimated GFR (Cockcroft-Gault) 98.9 Glucose Level 113 mg/dL (70-99) Calcium Level 8.5 mg/dL (8.5-10.1) Lactic Acid Level 0.8 mmol/L (0.4-2.0) Microbiology 08/10/18 Blood Culture - Preliminary, Resulted NO GROWTH AFTER 1 DAY Medications Current Medications Ketorolac Tromethamine (Toradol 15mg Vial) 15 mg 1X ONCE IV Last administered on 08/10/18at 04:18; Start 08/10/18 at 04:15; Stop 08/10/18 at 04:16; Status DC Sodium Chloride 1,000 ml @ 1,000 mls/hr 1X ONCE IV Last administered on at 04:17; Start 08/10/18 at 04:15; Stop 08/10/18 at 05:14; Status DC Metoclopramide HCl (Reglan Vial) 10 mg 1X ONCE IV Last administered on at 04:18; Start 08/10/18 at 04:15; Stop 08/10/18 at 04:16; Status DC Tamsulosin HCl (Flomax) 0.4 mg 1X ONCE PO Last administered on 08/10/18at 04:58 ; Start 08/10/18 at 05:00; Stop 08/10/18 at 05:01; Status DC Fentanyl Citrate (Fentanyl 2ml Vial) 50 mcg 1X ONCE IV Last administered on at 04:59; Start 08/10/18 at 05:00; Stop 08/10/18 at 05:01; Status DC Ondansetron HCl (Zofran) 4 mg PRN Q8HRS PRN IV NAUSEA/VOMITING; Start 08/10/18 at 05:00; Stop 08/11/18 at 04:59; Status DC Fentanyl Citrate (Fentanyl 2ml Vial) 50 mcg PRN Q2HR PRN IV PAIN Last administered on 08/10/18at 07:17; Start 08/10/18 at 05:00; Stop 08/10/18 at 09:02 ; Status DC Morphine Sulfate (Morphine Sulfate) 4 mg 1X ONCE IV Last administered on at 05:43; Start 08/10/18 at 05:45; Stop 08/10/18 at 05:46; Status DC Ceftriaxone Sodium (Rocephin) 1 gm 1X ONCE IVP Last administered on 08/10/18at 06:01; Start 08/10/18 at 06:00; Stop 08/10/18 at 06:01; Status DC Sodium Chloride 1,000 ml @ 125 mls/hr 1X ONCE IV Last administered on at 07:21; Start 08/10/18 at 07:15; Stop 08/10/18 at 15:14; Status DC Fentanyl Citrate (Fentanyl 2ml Vial) 75 mcg PRN Q2HR PRN IV PAIN Last administered on 08/10/18at 11:36; Start 08/10/18 at 09:15 Fentanyl Citrate (Fentanyl 2ml Vial) 100 mcg 1X ONCE IV ; Start 08/10/18 at 09: 15; Stop 08/10/18 at 09:16; Status DC Phenazopyridine HCl (Pyridium) 200 mg PRN TID PRN PO URINARY PAIN Last administered on 08/11/18at 14:52; Start 08/10/18 at 09:30 Ciprofloxacin/ Dextrose 200 ml @ 200 mls/hr 1X ONCE IV Last administered on at 14:31; Start 08/10/18 at 13:30; Stop 08/10/18 at 14:29; Status DC Fentanyl Citrate (Fentanyl 2ml Vial) 25 mcg PRN Q5MIN PRN IV MILD PAIN; Start 08/10/18 at 12:00; Stop 08/11/18 at 11:59; Status DC Fentanyl Citrate (Fentanyl 2ml Vial) 50 mcg PRN Q5MIN PRN IV MODERATE TO SEVERE PAIN; Start 08/10/18 at 12:00; Stop 08/11/18 at 11:59; Status DC Morphine Sulfate (Morphine Sulfate) 1 mg PRN Q10MIN PRN IV SEVERE PAIN; Start 08/10/18 at 12:00; Stop 08/11/18 at 11:59; Status DC Ringer's Solution 1,000 ml @ 30 mls/hr Q24H IV ; Start 08/10/18 at 11:57; Stop 08/10/18 at 23:56; Status DC Lidocaine HCl (Xylocaine-Mpf 1% 2ml Vial) 2 ml 1X PRN PRN ID IV START; Start at 12:00; Stop 08/11/18 at 11:59; Status DC Hydromorphone HCl (Dilaudid) 0.5 mg PRN Q10MIN PRN IV SEV PAIN, Second choice; Start 08/10/18 at 12:00; Stop 08/11/18 at 11:59; Status DC Prochlorperazine Edisylate (Compazine) 5 mg PACU PRN PRN IV NAUSEA, MRX1; Start 08/10/18 at 12:00; Stop 08/11/18 at 11:59; Status DC Iohexol (Omnipaque 300 Mg/ml) 100 ml STK-MED ONCE .ROUTE ; Start 08/10/18 at 14: 08; Stop 08/10/18 at 14:09; Status DC Lidocaine HCl (Glydo (Lidocaine) Jelly) 6 adamaris STK-MED ONCE .ROUTE ; Start at 14:08; Stop 08/10/18 at 14:09; Status DC Lidocaine HCl (Glydo (Lidocaine) Jelly) 6 adamaris STK-MED ONCE .ROUTE ; Start at 14:09; Stop 08/10/18 at 14:10; Status DC Fentanyl Citrate (Fentanyl 2ml Vial) 100 mcg STK-MED ONCE .ROUTE ; Start at 14:38; Stop 08/10/18 at 14:39; Status DC Lidocaine HCl (Lidocaine Pf 2% Vial) 5 ml STK-MED ONCE .ROUTE ; Start 08/10/18 at 14:47; Stop 08/10/18 at 14:48; Status DC Propofol 20 ml @ As Directed STK-MED ONCE IV ; Start 08/10/18 at 14:47; Stop at 14:48; Status DC Dexamethasone Sodium Phosphate (Decadron) 20 mg STK-MED ONCE .ROUTE ; Start at 14:47; Stop 08/10/18 at 14:48; Status DC Ondansetron HCl (Zofran) 4 mg STK-MED ONCE .ROUTE ; Start 08/10/18 at 14:47; Stop 08/10/18 at 14:48; Status DC Sevoflurane (Ultane) 30 ml STK-MED ONCE IH ; Start 08/10/18 at 14:47; Stop 08/10 at 14:48; Status DC Sodium Chloride 1,000 ml @ 100 mls/hr Q10H IV Last administered on 08/11/18at 09:52; Start 08/10/18 at 16:15 Ciprofloxacin (Cipro) 500 mg BID PO Last administered on 08/11/18at 08:51; Start 08/10/18 at 21:00 Oxycodone/ Acetaminophen (Percocet 5/325) 1 tab PRN Q6HRS PRN PO PAIN Last administered on 08/11/18at 14:52; Start 08/10/18 at 19:45 Gentamicin Sulfate 1 each PRN DAILY PRN MC SEE COMMENTS Last administered on at 13:11; Start 08/11/18 at 09:00 Gentamicin Sulfate 350 mg/ Dextrose 108.75 ml @ 108.75 mls/hr 1X ONCE IV ; Start 08/11/18 at 09:30; Stop 08/11/18 at 09:30; Status DC Gentamicin Sulfate 370 mg/ Dextrose 109.25 ml @ 109.25 mls/hr 1X ONCE IV Last administered on 08/11/18at 09:51; Start 08/11/18 at 09:30; Stop 08/11/18 at 10:29; Status DC Lactobacillus Rhamnosus (Culturelle) 1 cap BID PO ; Start 08/11/18 at 21:00 Gentamicin Sulfate 1 each 1X ONCE MC ; Start 08/11/18 at 20:00; Stop 08/11/18 at 20:01 Vitals/I & O Vital Sign - Last 24 Hours 08/10/18 08/10/18 08/10/18 08/10/18 15:45 16:00 16:13 16:27 Temp 100 100.0 100.0 100.0 Pulse 89 92 101 81 Resp 22 21 B/P (MAP) 148/69 148/64 110/72 (85) 107/63 (78) Pulse Ox 95 95 93 95 O2 Delivery Room Air Room Air 08/10/18 08/10/18 08/10/18 08/10/18 16:42 16:58 17:42 18:12 Pulse 80 110 91 77 B/P (MAP) 127/56 (79) 120/68 (85) 120/67 (84) 116/65 (82) Pulse Ox 89 94 97 08/10/18 08/10/18 08/10/18 08/10/18 18:38 19:30 20:00 23:12 Temp 97.6 98.1 97.6 98.1 Pulse 72 90 77 Resp 18 18 B/P (MAP) 108/66 (80) 122/71 (88) 115/60 (78) Pulse Ox 96 95 O2 Delivery Room Air Room Air Room Air 08/11/18 08/11/18 08/11/18 08/11/18 03:08 07:00 07:35 08:59 Temp 98.3 98.5 98.3 98.5 Pulse 62 93 Resp 18 18 B/P (MAP) 106/65 (79) 139/76 (97) Pulse Ox 95 94 O2 Delivery Room Air Room Air Room Air Room Air 08/11/18 08/11/18 08/11/18 10:26 11:00 14:52 Temp 99.6 99.6 Pulse 103 Resp 18 B/P (MAP) 134/81 (98) Pulse Ox 97 97 O2 Delivery Room Air Room Air Room Air Intake and Output 08/10/18 08/10/18 08/11/18 15:00 23:00 07:00 Intake Total 1200 ml 1400 ml 720 ml Balance 1200 ml 1400 ml 720 ml DIMITRIS LAY MD Aug 11, 2018 15:46
--- NOTE | 2018-08-11 16:00 | NUR ---
New development on current positive sepsis screening. Pt has an oral Temp of 100.2 and RR of 24. Dr Marie notified, orders received to repeat blood cultures x2 and continue treating symptoms as needed. Administered APAP PO, Pt reports burning sensation on back whenever she gets up to void. Pharmacy notified of Pt's symptoms so they can monitor for any side effects of Gentamicin which was started today.
[2018-08-11] MEDS: ACETAMINOPHEN 325 MG TABLET. PO PRN (16:32)
[2018-08-11 19:00] VITALS: BP 142/71
[2018-08-11] MEDS ORDERED: GENTAMICIN RANDOM LEVEL. MC ONE (20:00)
--- NOTE | 2018-08-11 20:03 | NUR ---
Pharmacy Aminoglycoside Dosing Note S: Consulted to monitor and dose Gentamicin started 08/11/18 O:STEFANIE BELLA is a 28 year old F with UTI Height: 5 feet, 4 inches Weight: 104.3 kg [place] Weight: 54.70 Adjusted Weight: 74.54 Dosing Weight:Adjusted Other Antibiotics: Cipro 500mg po bid LABS: BUN: 12 SCr:0.7 CrCl: >100 WBC: 28.5 Platelet: 231 Tmax (past 24 hours): 100.5 I/O: 3320/- Microbiology: Blood: NGTD (1 day) Drug Levels: Last Peak: on at Last Trough: on at Last Random Level: 1.1 on 08/11/18 at 1920 Last dose given 08/11/18 at 0951 A: Based on random level and nomogram P: 1. Dose Gentamicin 5 mg/kg IV q24h 2. Levels to be ordered if needed 3. Pharmacy will continue to monitor, follow and adjust therapy as needed. Eliana Samano RPH, 08/11/182002
[2018-08-11] MEDS: LACTOBACILLUS RHAMNOSUS GG 1 CAPSULE. PO SCH (21:00)
[2018-08-11 23:00] VITALS: BP 124/70
[2018-08-12 03:00] VITALS: BP 132/66
[2018-08-12] MEDS: ACETAMINOPHEN 325 MG TABLET. PO PRN ×2 (03:57→11:59)
[2018-08-12] MEDS: oxyCODONE/APAP 5/325 1 TAB TABLET PO PRN ×3 (03:57→22:46)
[2018-08-12 07:00] VITALS: BP 138/76
[2018-08-12] MEDS: CIPROFLOXACIN HCL 250 MG TABLET. PO SCH (08:26)
[2018-08-12] MEDS: LACTOBACILLUS RHAMNOSUS GG 1 CAPSULE. PO SCH ×2 (08:26→22:46)
[2018-08-12] MEDS: IV NORMAL SALINE 1000ML BAG 1,000 ML IV SCH ×2 (08:29→17:38)
[2018-08-12] MEDS ORDERED: DEXTROSE 5% IV SCH (10:00)
[2018-08-12] MEDS ORDERED: GENTAMICIN SULFATE IV SCH (10:00)
[2018-08-12] MEDS ORDERED: oxyCODONE IR 5 MG TABLET PO ONE (10:45)
[2018-08-12 11:00] VITALS: BP 145/85
--- NOTE | 2018-08-12 11:55 | PDOC ---
PROGRESS NOTES Chief Complaint Chief Complaint Acute abd and flank pain Renal colic SIRS, sepsis marked leukocytosis, obesity, BMI 39 on gent and cipro, consult ID, could we DC with a PO cefalosporin, f/u labs ? pain better, but one time oxy 10mg History of Present Illness History of Present Illness some back pain, some distress hoping to leave soon, has young children, her mother is helping her out, works at the [employer], heaving lifting, Vitals Vitals Vital Signs Date Time Temp Pulse Resp B/P (MAP) Pulse Ox O2 Delivery O2 Flow Rate FiO2 08/12/18 10:48 97 Room Air 08/12/18 07:00 98.6 82 18 138/76 (96) 98.6 Physical Exam Physical Exam GENERAL: NAD, Alert HEENT: PERRL, OC/OP NECK: Supple, no JVD, no LN LUNGS: Clear HEART: S1S2, no gallop, no murmur ABD: Soft, NT, no organomegaly, no rebound EXT: No edema, no cyanosis FACTORY SUPERVISOR: Alert, oriented x 3, no focal neurologic deficit SKIN: No rash IV: ok General: Alert, Oriented X3, Cooperative, No acute distress Heart: Regular rate Abdomen: Normal bowel sounds, Soft Extremities: No cyanosis, No edema, Normal pulses Skin: No rashes Labs LABS Laboratory Tests Test 08/11/18 19:20 Random Gentamicin Level 1.1 mcg/mL Assessment and Plan Assessmemt and Plan Problems Medical Problems: (1) Hydronephrosis with urinary obstruction due to ureteral calculus Status: Acute (2) Lactic acidosis Status: Acute (3) Leukocytosis Status: Acute Comment Review of Relevant I have reviewed the following items christy (where applicable) has been applied. Labs Laboratory Tests Test 08/11/18 04:30 08/11/18 11:45 08/11/18 19:20 White Blood Count 28.5 x10^3/uL (4.0-11.0) Red Blood Count 4.40 x10^6/uL (3.50-5.40) Hemoglobin 9.7 g/dL (12.0-15.5) Hematocrit 31.1 % (36.0-47.0) Mean Corpuscular Volume 71 fL (79-100) Mean Corpuscular Hemoglobin 22 pg (25-35) Mean Corpuscular Hemoglobin Concent 31 g/dL (31-37) Red Cell Distribution Width 18.7 % (11.5-14.5) Platelet Count 231 x10^3/uL (140-400) Neutrophils (%) (Auto) 89 % (31-73) Lymphocytes (%) (Auto) 6 % (24-48) Monocytes (%) (Auto) 6 % (0-9) Eosinophils (%) (Auto) 0 % (0-3) Basophils (%) (Auto) 0 % (0-3) Neutrophils # (Auto) 25.3 x10^3uL (1.8-7.7) Lymphocytes # (Auto) 1.6 x10^3/uL (1.0-4.8) Monocytes # (Auto) 1.6 x10^3/uL (0.0-1.1) Eosinophils # (Auto) 0.0 x10^3/uL (0.0-0.7) Basophils # (Auto) 0.0 x10^3/uL (0.0-0.2) Sodium Level 140 mmol/L (136-145) Potassium Level 4.0 mmol/L (3.5-5.1) Chloride Level 106 mmol/L (98-107) Carbon Dioxide Level 23 mmol/L (21-32) Anion Gap 11 (6-14) Blood Urea Nitrogen 12 mg/dL (7-20) Creatinine 0.7 mg/dL (0.6-1.0) Estimated GFR (Cockcroft-Gault) 98.9 Glucose Level 113 mg/dL (70-99) Calcium Level 8.5 mg/dL (8.5-10.1) Lactic Acid Level 0.8 mmol/L (0.4-2.0) Random Gentamicin Level 1.1 mcg/mL Laboratory Tests Test 08/11/18 19:20 Random Gentamicin Level 1.1 mcg/mL Microbiology 08/10/18 Blood Culture - Preliminary, Resulted NO GROWTH AFTER 2 DAYS 08/10/18 Urine Culture - Preliminary, Resulted 08/10/18 Urine Culture Result 1 (MARKO) - Preliminary, Resulted 08/10/18 Urine Culture Result 2 (MARKO) - Preliminary, Resulted Medications Current Medications Ketorolac Tromethamine (Toradol 15mg Vial) 15 mg 1X ONCE IV Last administered on 08/10/18at 04:18; Start 08/10/18 at 04:15; Stop 08/10/18 at 04:16; Status DC Sodium Chloride 1,000 ml @ 1,000 mls/hr 1X ONCE IV Last administered on at 04:17; Start 08/10/18 at 04:15; Stop 08/10/18 at 05:14; Status DC Metoclopramide HCl (Reglan Vial) 10 mg 1X ONCE IV Last administered on at 04:18; Start 08/10/18 at 04:15; Stop 08/10/18 at 04:16; Status DC Tamsulosin HCl (Flomax) 0.4 mg 1X ONCE PO Last administered on 08/10/18at 04:58 ; Start 08/10/18 at 05:00; Stop 08/10/18 at 05:01; Status DC Fentanyl Citrate (Fentanyl 2ml Vial) 50 mcg 1X ONCE IV Last administered on at 04:59; Start 08/10/18 at 05:00; Stop 08/10/18 at 05:01; Status DC Ondansetron HCl (Zofran) 4 mg PRN Q8HRS PRN IV NAUSEA/VOMITING; Start 08/10/18 at 05:00; Stop 08/11/18 at 04:59; Status DC Fentanyl Citrate (Fentanyl 2ml Vial) 50 mcg PRN Q2HR PRN IV PAIN Last administered on 08/10/18at 07:17; Start 08/10/18 at 05:00; Stop 08/10/18 at 09:02 ; Status DC Morphine Sulfate (Morphine Sulfate) 4 mg 1X ONCE IV Last administered on at 05:43; Start 08/10/18 at 05:45; Stop 08/10/18 at 05:46; Status DC Ceftriaxone Sodium (Rocephin) 1 gm 1X ONCE IVP Last administered on 08/10/18at 06:01; Start 08/10/18 at 06:00; Stop 08/10/18 at 06:01; Status DC Sodium Chloride 1,000 ml @ 125 mls/hr 1X ONCE IV Last administered on at 07:21; Start 08/10/18 at 07:15; Stop 08/10/18 at 15:14; Status DC Fentanyl Citrate (Fentanyl 2ml Vial) 75 mcg PRN Q2HR PRN IV PAIN Last administered on 08/10/18at 11:36; Start 08/10/18 at 09:15 Fentanyl Citrate (Fentanyl 2ml Vial) 100 mcg 1X ONCE IV ; Start 08/10/18 at 09: 15; Stop 08/10/18 at 09:16; Status DC Phenazopyridine HCl (Pyridium) 200 mg PRN TID PRN PO URINARY PAIN Last administered on 08/11/18at 14:52; Start 08/10/18 at 09:30 Ciprofloxacin/ Dextrose 200 ml @ 200 mls/hr 1X ONCE IV Last administered on at 14:31; Start 08/10/18 at 13:30; Stop 08/10/18 at 14:29; Status DC Fentanyl Citrate (Fentanyl 2ml Vial) 25 mcg PRN Q5MIN PRN IV MILD PAIN; Start 08/10/18 at 12:00; Stop 08/11/18 at 11:59; Status DC Fentanyl Citrate (Fentanyl 2ml Vial) 50 mcg PRN Q5MIN PRN IV MODERATE TO SEVERE PAIN; Start 08/10/18 at 12:00; Stop 08/11/18 at 11:59; Status DC Morphine Sulfate (Morphine Sulfate) 1 mg PRN Q10MIN PRN IV SEVERE PAIN; Start 08/10/18 at 12:00; Stop 08/11/18 at 11:59; Status DC Ringer's Solution 1,000 ml @ 30 mls/hr Q24H IV ; Start 08/10/18 at 11:57; Stop 08/10/18 at 23:56; Status DC Lidocaine HCl (Xylocaine-Mpf 1% 2ml Vial) 2 ml 1X PRN PRN ID IV START; Start at 12:00; Stop 08/11/18 at 11:59; Status DC Hydromorphone HCl (Dilaudid) 0.5 mg PRN Q10MIN PRN IV SEV PAIN, Second choice; Start 08/10/18 at 12:00; Stop 08/11/18 at 11:59; Status DC Prochlorperazine Edisylate (Compazine) 5 mg PACU PRN PRN IV NAUSEA, MRX1; Start 08/10/18 at 12:00; Stop 08/11/18 at 11:59; Status DC Iohexol (Omnipaque 300 Mg/ml) 100 ml STK-MED ONCE .ROUTE ; Start 08/10/18 at 14: 08; Stop 08/10/18 at 14:09; Status DC Lidocaine HCl (Glydo (Lidocaine) Jelly) 6 adamaris STK-MED ONCE .ROUTE ; Start at 14:08; Stop 08/10/18 at 14:09; Status DC Lidocaine HCl (Glydo (Lidocaine) Jelly) 6 adamaris STK-MED ONCE .ROUTE ; Start at 14:09; Stop 08/10/18 at 14:10; Status DC Fentanyl Citrate (Fentanyl 2ml Vial) 100 mcg STK-MED ONCE .ROUTE ; Start at 14:38; Stop 08/10/18 at 14:39; Status DC Lidocaine HCl (Lidocaine Pf 2% Vial) 5 ml STK-MED ONCE .ROUTE ; Start 08/10/18 at 14:47; Stop 08/10/18 at 14:48; Status DC Propofol 20 ml @ As Directed STK-MED ONCE IV ; Start 08/10/18 at 14:47; Stop at 14:48; Status DC Dexamethasone Sodium Phosphate (Decadron) 20 mg STK-MED ONCE .ROUTE ; Start at 14:47; Stop 08/10/18 at 14:48; Status DC Ondansetron HCl (Zofran) 4 mg STK-MED ONCE .ROUTE ; Start 08/10/18 at 14:47; Stop 08/10/18 at 14:48; Status DC Sevoflurane (Ultane) 30 ml STK-MED ONCE IH ; Start 08/10/18 at 14:47; Stop 08/10 at 14:48; Status DC Sodium Chloride 1,000 ml @ 100 mls/hr Q10H IV Last administered on 08/12/18at 08:29; Start 08/10/18 at 16:15 Ciprofloxacin (Cipro) 500 mg BID PO Last administered on 08/12/18at 08:26; Start 08/10/18 at 21:00 Oxycodone/ Acetaminophen (Percocet 5/325) 1 tab PRN Q6HRS PRN PO MODERATE - SEVERE PAIN Last administered on 08/12/18at 03:57; Start 08/10/18 at 19:45; Stop 08/12/18 at 10:57; Status DC Gentamicin Sulfate 1 each PRN DAILY PRN MC SEE COMMENTS Last administered on at 20:02; Start 08/11/18 at 09:00 Gentamicin Sulfate 350 mg/ Dextrose 108.75 ml @ 108.75 mls/hr 1X ONCE IV ; Start 08/11/18 at 09:30; Stop 08/11/18 at 09:30; Status DC Gentamicin Sulfate 370 mg/ Dextrose 109.25 ml @ 109.25 mls/hr 1X ONCE IV Last administered on 08/11/18at 09:51; Start 08/11/18 at 09:30; Stop 08/11/18 at 10:29; Status DC Lactobacillus Rhamnosus (Culturelle) 1 cap BID PO Last administered on at 08:26; Start 08/11/18 at 21:00 Gentamicin Sulfate 1 each 1X ONCE MC Last administered on 08/11/18at 20:00; Start 08/11/18 at 20:00; Stop 08/11/18 at 20:01; Status DC Acetaminophen (Tylenol) 650 mg PRN Q6HRS PRN PO MILD PAIN / TEMP Last administered on 08/12/18at 03:57; Start 08/11/18 at 16:15 Gentamicin Sulfate 370 mg/ Dextrose 109.25 ml @ 109.25 mls/hr Q24H IV Last administered on 08/12/18at 10:40; Start 08/12/18 at 10:00 Oxycodone HCl (Roxicodone) 10 mg 1X ONCE PO Last administered on 08/12/18at 10: 48; Start 08/12/18 at 10:45; Stop 08/12/18 at 10:46; Status DC Oxycodone/ Acetaminophen (Percocet 5/325) 1 tab PRN Q4HRS PRN PO MODERATE - SEVERE PAIN; Start 08/12/18 at 11:00 Vitals/I & O Vital Sign - Last 24 Hours 08/11/18 08/11/18 08/11/18 08/11/18 14:52 15:00 16:00 19:00 Temp 100.2 100.6 100.2 100.6 Pulse 117 115 Resp 24 18 B/P (MAP) 132/72 (92) 142/71 (94) Pulse Ox 97 93 95 O2 Delivery Room Air Room Air Room Air Room Air 2/23/19 2/23/19 2/24/19 2/24/19 20:00 23:00 03:00 07:00 Temp 99.0 99.0 98.6 99.0 99.0 98.6 Pulse 116 96 82 Resp 18 18 18 B/P (MAP) 124/70 (88) 132/66 (88) 138/76 (96) Pulse Ox 92 93 97 O2 Delivery Room Air Room Air Room Air Room Air 08/12/18 08/12/18 07:40 10:48 Pulse Ox 97 O2 Delivery Room Air Room Air Intake and Output 08/11/18 08/11/18 08/12/18 14:59 22:59 06:59 Intake Total 260 ml 1200 ml Balance 260 ml 1200 ml ROSA CHISHOLM MD Aug 12, 2018 11:55
[2018-08-12] MEDS: PIPERACILLIN/TAZOBACTAM 3.375 GM in IV NORMAL SALINE 50ML 50 ML IV SCH ×3 (12:18→23:59)
--- NOTE | 2018-08-12 12:51 | PDOC ---
Infectious Disease Note Vital Sign Vital Signs Vital Signs Date Time Temp Pulse Resp B/P (MAP) Pulse Ox O2 Delivery O2 Flow Rate FiO2 08/12/18 12:00 97 Room Air 08/12/18 11:00 101.5 101 18 145/85 (105) 101.5 Labs Lab Laboratory Tests Test 08/11/18 19:20 Random Gentamicin Level 1.1 mcg/mL Micro Objective Assessment Complicated UTI , POA with growth of proteus and GNR (ID pending) Obstructive uropathy s/p left uretal stent placement on 08/11. (pus noted behind stone) Fever Leukocytosis, likely reactive in part due to steroids and procedure on 08/11. Obesity Tobacco dependency Plan Plan of Care Previously on cipro and gent, now on Zosyn per urology f/u cultures Monitor labs and temp - labs now given procedure and Aminoglycosides Supportive care Thank you [id number] Attending Co-Sign Attending Co-Sign The patient was seen and interviewed as well as examined at the bedside. The chart was reviewed. The case was discussed. Agree with the plan of care. JOE PHIPPS APRN Aug 12, 2018 12:51 NARENDRA GOLD MD Aug 12, 2018 13:07
--- NOTE | 2018-08-12 13:16 | PDOC ---
Progress Note Subjective Subjective febrile o/n. no nausea or vomiting. ROS ROS No nausea No vomiting No pain No rash Vital Sign Vital Signs Vital Signs Date Time Temp Pulse Resp B/P (MAP) Pulse Ox O2 Delivery O2 Flow Rate FiO2 08/12/18 12:00 97 Room Air 08/12/18 11:00 101.5 101 18 145/85 (105) 101.5 Labs Lab Laboratory Tests Test 08/11/18 19:20 Random Gentamicin Level 1.1 mcg/mL Objective Assessment uti ureter stone s/p stent Plan Plan of Care switch to Zosyn f/u cultures Supportive care SAMIA ZACARIAS MD Aug 12, 2018 13:16
[2018-08-12 15:00] VITALS: BP 137/68
[2018-08-12 16:12] LABS: BASO % 0 % (0-3); EOS % 0 % (0-3); HEMATOCRIT 32.2 % (36.0-47.0); HEMOGLOBIN 10.2 g/dL (12.0-15.5); LYMPH # 1.1 x10^3/uL (1.0-4.8); LYMPH % 11 % (24-48); MEAN CORPUSCULAR HEMOGLOBIN 22 pg (25-35); MEAN CORPUSCULAR HGB CONC 32 g/dL (31-37); MEAN CORPUSCULAR VOLUME 70 fL (79-100); MONO # 0.7 x10^3/uL (0.0-1.1); MONO % 7 % (0-9); NEUT # 7.9 x10^3uL (1.8-7.7); NEUT % 81 % (31-73); PLATELET COUNT 194 x10^3/uL (140-400); RED CELL DISTRIBUTION WIDTH 18.9 % (11.5-14.5); WHITE BLOOD COUNT 9.8 x10^3/uL (4.0-11.0)
[2018-08-12 16:22] LABS: CALCIUM 8.5 mg/dL (8.5-10.1); CREATININE 0.7 mg/dL (0.6-1.0); GFR 98.9; POTASSIUM 3.6 mmol/L (3.5-5.1)
[2018-08-12 19:00] VITALS: BP 123/77
--- NOTE | 2018-08-12 22:11 | CONS ---
DATE OF CONSULTATION: 08/12/2018 REFERRING PHYSICIAN: Dr. Le. REASON FOR CONSULTATION: Urinary tract infection with sepsis. HISTORY OF PRESENT ILLNESS: This patient is a pleasant 28-year-old female who presented 2 days ago with complaints of severe low back pain radiating to abdomen. She was found to have a urinary tract infection with a left ureter stone. She was started on ciprofloxacin and underwent a stent placement on 08/11/2018. Over the last 24 hours or so, she has developed fevers ranging between 100.2 and 101.5 along with worsening leukocytosis. A urine culture is now showing Proteus mirabilis and Gram-negative rods (ID pending). Blood cultures from 08/10/2018 are negative with repeat from the 08/11/2018 pending. She was given a dose of gentamicin before antibiotics were switched to Zosyn. ID has been asked to consult for further evaluation and antibiotic management. The patient says she has a history of kidney stones; however, this type pain was different. She denies fevers or chills prior to admission. Denies dysuria. She actually says she is feeling pretty good. Her appetite is good. Denies nausea, vomiting or diarrhea. Denies rash. PAST MEDICAL HISTORY: Kidney stones. PAST SURGICAL HISTORY: Cyst removal, left arm. FAMILY HISTORY: Noncontributory. 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 She is single with 2 children, ages 5 and 9. She is a current every day smoker. ALLERGIES: No known drug allergies. MEDICATIONS: She is currently on Zosyn. Previously on ciprofloxacin and gentamicin. Pyridium, probiotics. Other medications are available and have been reviewed on the AUG. REVIEW OF SYSTEMS: Per HPI, otherwise all other systems are negative. PHYSICAL EXAMINATION: VITAL SIGNS: Temperature 101.5, blood pressure 145/85, heart rate 101, respiratory rate 18, pulse oximetry is 97% on room air. BMI 39.5. GENERAL: The patient is propped up in bed, alert and eating. HEENT: Pupils equally round, reactive. Normal conjunctivae. Oropharynx pink and moist. NECK: Supple. LUNGS: Clear to auscultation. HEART: S1, S2. ABDOMEN: Obese, soft and nontender with bowel sounds present. EXTREMITIES: No gross edema or cyanosis. SKIN: Warm without rash. She has multiple tattoos. NEUROLOGIC: Alert and oriented x 3. LINES: Peripheral IV looks okay. LABORATORY DATA: Today's WBC 28.5 and 24.6, hemoglobin 9.7, platelets 231,000. Electrolytes are unremarkable. Creatinine 0.7, BUN 12, glucose 113. Lactic acid 0.8 from 2.1, total bilirubin 0.2, AST 21, ALT 36, albumin 3.5, lipase 65. Urinalysis from 08/10/2018 showed wbc's 5-10, small leukocyte esterase, negative nitrite with moderate bacteria and many squamous epithelial cells. hCG urine negative. Blood cultures from 08/10/2018 are negative to date. Repeat blood cultures from 06/10/2019 are pending. Urine culture from 06/09/2019 shows Proteus mirabilis and Gram-negative rods. Abdominal/pelvis CT without contrast showed left-sided hydronephrosis and hydroureter with calcification on left hemipelvis; some mild prominence of the right renal pelvis with a couple of tiny calcifications in the right hemipelvis. IMPRESSION: 1. Complicated urinary tract infection, present on admission with growth of Proteus and Gram-negative rods. 2. Obstructive uropathy, status post left ureter stent placement on 08/11/2018. 3. Fever. 4. Leukocytosis, likely reactive in part due to steroids and procedure. 5. Obesity. 6. Tobacco dependency. PLAN: Continue the Zosyn for now. Further antibiotic modifications pending culture results with susceptibilities. Continue to monitor laboratory values and temperature. Supportive care. Thank you, Dr. Le, for asking us to participate in this patient's care. Should you have further questions or concerns, please call. NARENDRA GOLD MD DR: TIMOTHY/mariela JOB#: [id number] / [id number]
[2018-08-12 23:00] VITALS: BP 151/88
[2018-08-13] VITALS (7 sets, daily range): BP systolic 121–153; BP diastolic 75–99
[2018-08-13] MEDS: ACETAMINOPHEN 325 MG TABLET. PO PRN (00:03)
[2018-08-13] MEDS: IV NORMAL SALINE 1000ML BAG 1,000 ML IV SCH ×2 (06:10→17:25)
[2018-08-13] MEDS: PIPERACILLIN/TAZOBACTAM 3.375 GM in IV NORMAL SALINE 50ML 50 ML IV SCH ×3 (06:11→17:27)
--- NOTE | 2018-08-13 06:13 | NUR ---
Patients mother called last night stating patient had abcesses that were draining under her arm pits. She also continued to say that the patient didnt want anyone knowing about them and would be mad at her if she found out. This RN upon assessing patient asked patient if she had any other symptoms that might cause a temp including any open sores and patient denied. This RN will notify Day RN in shift report.to pass on to a Dr. during rounds. Will continue to monitor.
[2018-08-13] MEDS: LACTOBACILLUS RHAMNOSUS GG 1 CAPSULE. PO SCH ×2 (07:56→19:59)
[2018-08-13] MEDS: oxyCODONE/APAP 5/325 1 TAB TABLET PO PRN ×2 (07:57→17:23)
[2018-08-13] MEDS ORDERED: OXYC1TAB15 PO (08:13)
[2018-08-13] MEDS ORDERED: PHEN-444 PO (08:13)
--- NOTE | 2018-08-13 08:30 | NUR ---
This nurse informed about pt's mother's phone call and pt's resistance to reveal underarm wounds, together we confronted pt and discovered multiple draining abcesses to pt's axilla bilaterally. Per , this nurse sent 2 wounds cultures to lab, consulted wound care, measured and pictured wounds and placed them in pt's chart. Sent message to asking if pt needs surgery consulted, will wait for response.
--- NOTE | 2018-08-13 08:49 | PDOC ---
Infectious Disease Note Subjective Subjective febrile o/n. no nausea or vomiting. ROS ROS no cp, sob Vital Sign Vital Signs Vital Signs Date Time Temp Pulse Resp B/P (MAP) Pulse Ox O2 Delivery O2 Flow Rate FiO2 08/13/18 07:57 97 Room Air 08/13/18 03:00 98.2 107 18 125/75 (92) 98.2 08/13/18 00:03 3.0 Physical Exam PHYSICAL EXAM GENERAL: The patient is propped up in bed, alert and eating. HEENT: Pupils equally round, reactive. Normal conjunctivae. Oropharynx pink and moist. NECK: Supple. LUNGS: Clear to auscultation. HEART: S1, S2. ABDOMEN: Obese, soft and nontender with bowel sounds present. EXTREMITIES: No gross edema or cyanosis. SKIN: Warm without rash. She has multiple tattoos. NEUROLOGIC: Alert and oriented x 3. LINES: Peripheral IV looks okay. Labs Lab Laboratory Tests Test 08/12/18 15:55 White Blood Count 9.8 x10^3/uL (4.0-11.0) Red Blood Count 4.60 x10^6/uL (3.50-5.40) Hemoglobin 10.2 g/dL (12.0-15.5) Hematocrit 32.2 % (36.0-47.0) Mean Corpuscular Volume 70 fL (79-100) Mean Corpuscular Hemoglobin 22 pg (25-35) Mean Corpuscular Hemoglobin Concent 32 g/dL (31-37) Red Cell Distribution Width 18.9 % (11.5-14.5) Platelet Count 194 x10^3/uL (140-400) Neutrophils (%) (Auto) 81 % (31-73) Lymphocytes (%) (Auto) 11 % (24-48) Monocytes (%) (Auto) 7 % (0-9) Eosinophils (%) (Auto) 0 % (0-3) Basophils (%) (Auto) 0 % (0-3) Neutrophils # (Auto) 7.9 x10^3uL (1.8-7.7) Lymphocytes # (Auto) 1.1 x10^3/uL (1.0-4.8) Monocytes # (Auto) 0.7 x10^3/uL (0.0-1.1) Eosinophils # (Auto) 0.0 x10^3/uL (0.0-0.7) Basophils # (Auto) 0.0 x10^3/uL (0.0-0.2) Sodium Level 138 mmol/L (136-145) Potassium Level 3.6 mmol/L (3.5-5.1) Chloride Level 105 mmol/L (98-107) Carbon Dioxide Level 24 mmol/L (21-32) Anion Gap 9 (6-14) Blood Urea Nitrogen 9 mg/dL (7-20) Creatinine 0.7 mg/dL (0.6-1.0) Estimated GFR (Cockcroft-Gault) 98.9 Glucose Level 120 mg/dL (70-99) Calcium Level 8.5 mg/dL (8.5-10.1) Micro Microbiology 08/11/18 Blood Culture - Preliminary, Resulted NO GROWTH AFTER 1 DAY 08/10/18 Urine Culture - Preliminary, Resulted 08/10/18 Urine Culture Result 1 (MARKO) - Preliminary, Resulted 08/10/18 Urine Culture Result 2 (MARKO) - Preliminary, Resulted 08/10/18 Antimicrobic Susceptibility - Preliminary, Resulted Objective Assessment Complicated UTI , POA with growth of proteus and GNR (ID pending) Obstructive uropathy s/p left uretal stent placement on 08/11. (pus noted behind stone) Fever Leukocytosis, likely reactive in part due to steroids and procedure on 08/11. Obesity Tobacco dependency Plan Plan of Care switch to Zosyn f/u cultures Supportive care monitor for fever will add doxy, rt axillary draining cyst, ? MRSA, will culture MAGAN WEINER MD Aug 13, 2018 08:49
--- NOTE | 2018-08-13 09:58 | PDOC ---
PROGRESS NOTES Chief Complaint Chief Complaint Escherichia coli and Proteus UTI with negative blood cultures Fevers/sepsis Left ureteral stone status post stenting Renal colic-resolved Obesity, BMI 39.5 History hidradenitis suppurativa bilateral armpits-history of surgeryin 1 year ago History of Present Illness History of Present Illness Urine culture out-Escherichia coli UTI almost kelley sensitive except to ampicillin ID on board Fever still last episode 11 AM yesterday Mother tells us about draining pus and issues with bilateral armpits Patient did not volunteer this information and upon inspection foul-smelling under arms with evidence of previous surgery in [place] and once faced with these facts, she admits to surgery in and never followed up PLAN:" Armpit Drainage has been expressed and sent to the lab Continue antibiotic per ID Updated urology Discussed with ID and RN Marquez heavily the treatment for hidradenitis supp with mother at bedside Vitals Vitals Vital Signs Date Time Temp Pulse Resp B/P (MAP) Pulse Ox O2 Delivery O2 Flow Rate FiO2 08/13/18 09:00 Room Air 08/13/18 07:57 97 08/13/18 07:00 98.8 109 18 149/89 (109) 98.8 08/13/18 00:03 3.0 Physical Exam Physical Exam GENERAL: The patient is propped up in bed, alert and eating. HEENT: Pupils equally round, reactive. Normal conjunctivae. Oropharynx pink and moist. NECK: Supple. LUNGS: Clear to auscultation. HEART: S1, S2. ABDOMEN: Obese, soft and nontender with bowel sounds present. EXTREMITIES: No gross edema or cyanosis. SKIN: Warm without rash. She has multiple tattoos. NEUROLOGIC: Alert and oriented x 3. LINES: Peripheral IV looks okay. General: Alert, Oriented X3, Cooperative, No acute distress Heart: Regular rate Lungs: Clear Abdomen: Normal bowel sounds, Soft Extremities: No cyanosis, No edema, Normal pulses Skin: No rashes Labs LABS Laboratory Tests Test 08/12/18 15:55 White Blood Count 9.8 x10^3/uL (4.0-11.0) Red Blood Count 4.60 x10^6/uL (3.50-5.40) Hemoglobin 10.2 g/dL (12.0-15.5) Hematocrit 32.2 % (36.0-47.0) Mean Corpuscular Volume 70 fL (79-100) Mean Corpuscular Hemoglobin 22 pg (25-35) Mean Corpuscular Hemoglobin Concent 32 g/dL (31-37) Red Cell Distribution Width 18.9 % (11.5-14.5) Platelet Count 194 x10^3/uL (140-400) Neutrophils (%) (Auto) 81 % (31-73) Lymphocytes (%) (Auto) 11 % (24-48) Monocytes (%) (Auto) 7 % (0-9) Eosinophils (%) (Auto) 0 % (0-3) Basophils (%) (Auto) 0 % (0-3) Neutrophils # (Auto) 7.9 x10^3uL (1.8-7.7) Lymphocytes # (Auto) 1.1 x10^3/uL (1.0-4.8) Monocytes # (Auto) 0.7 x10^3/uL (0.0-1.1) Eosinophils # (Auto) 0.0 x10^3/uL (0.0-0.7) Basophils # (Auto) 0.0 x10^3/uL (0.0-0.2) Sodium Level 138 mmol/L (136-145) Potassium Level 3.6 mmol/L (3.5-5.1) Chloride Level 105 mmol/L (98-107) Carbon Dioxide Level 24 mmol/L (21-32) Anion Gap 9 (6-14) Blood Urea Nitrogen 9 mg/dL (7-20) Creatinine 0.7 mg/dL (0.6-1.0) Estimated GFR (Cockcroft-Gault) 98.9 Glucose Level 120 mg/dL (70-99) Calcium Level 8.5 mg/dL (8.5-10.1) Review of Systems Review of Systems A 14 point ROS was completed with the following noted as positive: Other systems reviewed and negative. \\CONSTITUTIONAL: No fever or chills EYES: No recent changes SKIN: No rash or itching CARDIOVASCULAR: No chest pain, syncope, palpitations, or edema RESPIRATORY: No SOB or cough GASTROINTESTINAL: No nausea, vomiting or abdominal pain NEUROLOGICAL: No headaches or weakness ENDOCRINE: No cold or heat intolerance GENITOURINARY: No urgency or frequency of urination MUSCULOSKELETAL: No back pain or joint pain LYMPHATICS: No enlarged lymph nodes PSYCHIATRIC: No anxiety or depression Assessment and Plan Assessmemt and Plan Problems Medical Problems: (1) Hydronephrosis with urinary obstruction due to ureteral calculus Status: Acute (2) Lactic acidosis Status: Acute (3) Leukocytosis Status: Acute Comment Review of Relevant I have reviewed the following items christy (where applicable) has been applied. Labs Laboratory Tests Test 08/11/18 11:45 08/11/18 19:20 08/12/18 15:55 Lactic Acid Level 0.8 mmol/L (0.4-2.0) Random Gentamicin Level 1.1 mcg/mL White Blood Count 9.8 x10^3/uL (4.0-11.0) Red Blood Count 4.60 x10^6/uL (3.50-5.40) Hemoglobin 10.2 g/dL (12.0-15.5) Hematocrit 32.2 % (36.0-47.0) Mean Corpuscular Volume 70 fL (79-100) Mean Corpuscular Hemoglobin 22 pg (25-35) Mean Corpuscular Hemoglobin Concent 32 g/dL (31-37) Red Cell Distribution Width 18.9 % (11.5-14.5) Platelet Count 194 x10^3/uL (140-400) Neutrophils (%) (Auto) 81 % (31-73) Lymphocytes (%) (Auto) 11 % (24-48) Monocytes (%) (Auto) 7 % (0-9) Eosinophils (%) (Auto) 0 % (0-3) Basophils (%) (Auto) 0 % (0-3) Neutrophils # (Auto) 7.9 x10^3uL (1.8-7.7) Lymphocytes # (Auto) 1.1 x10^3/uL (1.0-4.8) Monocytes # (Auto) 0.7 x10^3/uL (0.0-1.1) Eosinophils # (Auto) 0.0 x10^3/uL (0.0-0.7) Basophils # (Auto) 0.0 x10^3/uL (0.0-0.2) Sodium Level 138 mmol/L (136-145) Potassium Level 3.6 mmol/L (3.5-5.1) Chloride Level 105 mmol/L (98-107) Carbon Dioxide Level 24 mmol/L (21-32) Anion Gap 9 (6-14) Blood Urea Nitrogen 9 mg/dL (7-20) Creatinine 0.7 mg/dL (0.6-1.0) Estimated GFR (Cockcroft-Gault) 98.9 Glucose Level 120 mg/dL (70-99) Calcium Level 8.5 mg/dL (8.5-10.1) Laboratory Tests Test 08/12/18 15:55 White Blood Count 9.8 x10^3/uL (4.0-11.0) Red Blood Count 4.60 x10^6/uL (3.50-5.40) Hemoglobin 10.2 g/dL (12.0-15.5) Hematocrit 32.2 % (36.0-47.0) Mean Corpuscular Volume 70 fL (79-100) Mean Corpuscular Hemoglobin 22 pg (25-35) Mean Corpuscular Hemoglobin Concent 32 g/dL (31-37) Red Cell Distribution Width 18.9 % (11.5-14.5) Platelet Count 194 x10^3/uL (140-400) Neutrophils (%) (Auto) 81 % (31-73) Lymphocytes (%) (Auto) 11 % (24-48) Monocytes (%) (Auto) 7 % (0-9) Eosinophils (%) (Auto) 0 % (0-3) Basophils (%) (Auto) 0 % (0-3) Neutrophils # (Auto) 7.9 x10^3uL (1.8-7.7) Lymphocytes # (Auto) 1.1 x10^3/uL (1.0-4.8) Monocytes # (Auto) 0.7 x10^3/uL (0.0-1.1) Eosinophils # (Auto) 0.0 x10^3/uL (0.0-0.7) Basophils # (Auto) 0.0 x10^3/uL (0.0-0.2) Sodium Level 138 mmol/L (136-145) Potassium Level 3.6 mmol/L (3.5-5.1) Chloride Level 105 mmol/L (98-107) Carbon Dioxide Level 24 mmol/L (21-32) Anion Gap 9 (6-14) Blood Urea Nitrogen 9 mg/dL (7-20) Creatinine 0.7 mg/dL (0.6-1.0) Estimated GFR (Cockcroft-Gault) 98.9 Glucose Level 120 mg/dL (70-99) Calcium Level 8.5 mg/dL (8.5-10.1) Microbiology 08/11/18 Blood Culture - Preliminary, Resulted NO GROWTH AFTER 1 DAY 08/10/18 Urine Culture - Preliminary, Resulted 08/10/18 Urine Culture Result 1 (MARKO) - Preliminary, Resulted 08/10/18 Urine Culture Result 2 (MARKO) - Preliminary, Resulted 08/10/18 Antimicrobic Susceptibility - Preliminary, Resulted Medications Current Medications Ketorolac Tromethamine (Toradol 15mg Vial) 15 mg 1X ONCE IV Last administered on 08/10/18at 04:18; Start 08/10/18 at 04:15; Stop 08/10/18 at 04:16; Status DC Sodium Chloride 1,000 ml @ 1,000 mls/hr 1X ONCE IV Last administered on at 04:17; Start 08/10/18 at 04:15; Stop 08/10/18 at 05:14; Status DC Metoclopramide HCl (Reglan Vial) 10 mg 1X ONCE IV Last administered on at 04:18; Start 08/10/18 at 04:15; Stop 08/10/18 at 04:16; Status DC Tamsulosin HCl (Flomax) 0.4 mg 1X ONCE PO Last administered on 08/10/18at 04:58 ; Start 08/10/18 at 05:00; Stop 08/10/18 at 05:01; Status DC Fentanyl Citrate (Fentanyl 2ml Vial) 50 mcg 1X ONCE IV Last administered on at 04:59; Start 08/10/18 at 05:00; Stop 08/10/18 at 05:01; Status DC Ondansetron HCl (Zofran) 4 mg PRN Q8HRS PRN IV NAUSEA/VOMITING; Start 08/10/18 at 05:00; Stop 08/11/18 at 04:59; Status DC Fentanyl Citrate (Fentanyl 2ml Vial) 50 mcg PRN Q2HR PRN IV PAIN Last administered on 08/10/18at 07:17; Start 08/10/18 at 05:00; Stop 08/10/18 at 09:02 ; Status DC Morphine Sulfate (Morphine Sulfate) 4 mg 1X ONCE IV Last administered on at 05:43; Start 08/10/18 at 05:45; Stop 08/10/18 at 05:46; Status DC Ceftriaxone Sodium (Rocephin) 1 gm 1X ONCE IVP Last administered on 08/10/18at 06:01; Start 08/10/18 at 06:00; Stop 08/10/18 at 06:01; Status DC Sodium Chloride 1,000 ml @ 125 mls/hr 1X ONCE IV Last administered on at 07:21; Start 08/10/18 at 07:15; Stop 08/10/18 at 15:14; Status DC Fentanyl Citrate (Fentanyl 2ml Vial) 75 mcg PRN Q2HR PRN IV PAIN Last administered on 08/10/18at 11:36; Start 08/10/18 at 09:15 Fentanyl Citrate (Fentanyl 2ml Vial) 100 mcg 1X ONCE IV ; Start 08/10/18 at 09: 15; Stop 08/10/18 at 09:16; Status DC Phenazopyridine HCl (Pyridium) 200 mg PRN TID PRN PO URINARY PAIN Last administered on 08/11/18at 14:52; Start 08/10/18 at 09:30 Ciprofloxacin/ Dextrose 200 ml @ 200 mls/hr 1X ONCE IV Last administered on at 14:31; Start 08/10/18 at 13:30; Stop 08/10/18 at 14:29; Status DC Fentanyl Citrate (Fentanyl 2ml Vial) 25 mcg PRN Q5MIN PRN IV MILD PAIN; Start 08/10/18 at 12:00; Stop 08/11/18 at 11:59; Status DC Fentanyl Citrate (Fentanyl 2ml Vial) 50 mcg PRN Q5MIN PRN IV MODERATE TO SEVERE PAIN; Start 08/10/18 at 12:00; Stop 08/11/18 at 11:59; Status DC Morphine Sulfate (Morphine Sulfate) 1 mg PRN Q10MIN PRN IV SEVERE PAIN; Start 08/10/18 at 12:00; Stop 08/11/18 at 11:59; Status DC Ringer's Solution 1,000 ml @ 30 mls/hr Q24H IV ; Start 08/10/18 at 11:57; Stop 08/10/18 at 23:56; Status DC Lidocaine HCl (Xylocaine-Mpf 1% 2ml Vial) 2 ml 1X PRN PRN ID IV START; Start at 12:00; Stop 08/11/18 at 11:59; Status DC Hydromorphone HCl (Dilaudid) 0.5 mg PRN Q10MIN PRN IV SEV PAIN, Second choice; Start 08/10/18 at 12:00; Stop 08/11/18 at 11:59; Status DC Prochlorperazine Edisylate (Compazine) 5 mg PACU PRN PRN IV NAUSEA, MRX1; Start 08/10/18 at 12:00; Stop 08/11/18 at 11:59; Status DC Iohexol (Omnipaque 300 Mg/ml) 100 ml STK-MED ONCE .ROUTE ; Start 08/10/18 at 14: 08; Stop 08/10/18 at 14:09; Status DC Lidocaine HCl (Glydo (Lidocaine) Jelly) 6 adamaris STK-MED ONCE .ROUTE ; Start at 14:08; Stop 08/10/18 at 14:09; Status DC Lidocaine HCl (Glydo (Lidocaine) Jelly) 6 adamaris STK-MED ONCE .ROUTE ; Start at 14:09; Stop 08/10/18 at 14:10; Status DC Fentanyl Citrate (Fentanyl 2ml Vial) 100 mcg STK-MED ONCE .ROUTE ; Start at 14:38; Stop 08/10/18 at 14:39; Status DC Lidocaine HCl (Lidocaine Pf 2% Vial) 5 ml STK-MED ONCE .ROUTE ; Start 08/10/18 at 14:47; Stop 08/10/18 at 14:48; Status DC Propofol 20 ml @ As Directed STK-MED ONCE IV ; Start 08/10/18 at 14:47; Stop at 14:48; Status DC Dexamethasone Sodium Phosphate (Decadron) 20 mg STK-MED ONCE .ROUTE ; Start at 14:47; Stop 08/10/18 at 14:48; Status DC Ondansetron HCl (Zofran) 4 mg STK-MED ONCE .ROUTE ; Start 08/10/18 at 14:47; Stop 08/10/18 at 14:48; Status DC Sevoflurane (Ultane) 30 ml STK-MED ONCE IH ; Start 08/10/18 at 14:47; Stop 08/10 at 14:48; Status DC Sodium Chloride 1,000 ml @ 100 mls/hr Q10H IV Last administered on 08/13/18at 06:10; Start 08/10/18 at 16:15 Ciprofloxacin (Cipro) 500 mg BID PO Last administered on 08/12/18 08:26; Start 08/10/18 at 21:00; Stop 08/12/18 at 11:53; Status DC Oxycodone/ Acetaminophen (Percocet 5/325) 1 tab PRN Q6HRS PRN PO MODERATE - SEVERE PAIN Last administered on 08/12/18 03:57; Start 08/10/18 at 19:45; Stop 08/12/18 at 10:57; Status DC Gentamicin Sulfate 1 each PRN DAILY PRN MC SEE COMMENTS Last administered on at 20:02; Start 08/11/18 at 09:00; Stop 08/12/18 at 11:53; Status DC Gentamicin Sulfate 350 mg/ Dextrose 108.75 ml @ 108.75 mls/hr 1X ONCE IV ; Start 08/11/18 at 09:30; Stop 08/11/18 at 09:30; Status DC Gentamicin Sulfate 370 mg/ Dextrose 109.25 ml @ 109.25 mls/hr 1X ONCE IV Last administered on 08/11/18 09:51; Start 08/11/18 at 09:30; Stop 08/11/18 at 10:29; Status DC Lactobacillus Rhamnosus (Culturelle) 1 cap BID PO Last administered on at 07:56; Start 08/11/18 at 21:00 Gentamicin Sulfate 1 each 1X ONCE MC Last administered on 08/11/18at 20:00; Start 08/11/18 at 20:00; Stop 08/11/18 at 20:01; Status DC Acetaminophen (Tylenol) 650 mg PRN Q6HRS PRN PO MILD PAIN / TEMP Last administered on 08/13/18at 00:03; Start 08/11/18 at 16:15 Gentamicin Sulfate 370 mg/ Dextrose 109.25 ml @ 109.25 mls/hr Q24H IV Last administered on 08/12/18at 10:40; Start 08/12/18 at 10:00; Stop 08/12/18 at 11:53 ; Status DC Oxycodone HCl (Roxicodone) 10 mg 1X ONCE PO Last administered on 08/12/18at 10: 48; Start 08/12/18 at 10:45; Stop 08/12/18 at 10:46; Status DC Oxycodone/ Acetaminophen (Percocet 5/325) 1 tab PRN Q4HRS PRN PO MODERATE - SEVERE PAIN Last administered on 08/13/18at 07:57; Start 08/12/18 at 11:00 Piperacillin Sod/ Tazobactam Sod 3.375 gm/Sodium Chloride 50 ml @ 100 mls/hr Q6HRS IV Last administered on 08/13/18at 06:11; Start 08/12/18 at 12:00 Doxycycline Hyclate (Vibra-Tab) 100 mg BID PO ; Start 08/13/18 at 09:00 Active Scripts Active Percocet 5-325 Mg Tablet (Oxycodone/Acetaminophen) 1 Each Tablet 1 Tab PO PRN Q4HRS PRN MDD 1 Phenazopyridine Hcl 200 Mg Tablet 200 Mg PO PRN TID PRN MDD 1 Vitals/I & O Vital Sign - Last 24 Hours 08/12/18 08/12/18 08/12/18 08/12/18 10:48 11:00 12:00 15:00 Temp 101.5 98.5 101.5 98.5 Pulse 101 79 Resp 18 B/P (MAP) 145/85 (105) 137/68 (91) Pulse Ox 97 94 97 94 O2 Delivery Room Air Room Air Room Air Room Air 08/12/18 08/12/18 08/12/18 08/12/18 17:37 19:00 20:00 23:00 Temp 98.7 99.2 98.7 99.2 Pulse 98 107 Resp 18 18 B/P (MAP) 123/77 (92) 151/88 (109) Pulse Ox 94 96 98 O2 Delivery Room Air Room Air Room Air Room Air 08/13/18 08/13/18 08/13/18 08/13/18 00:01 00:03 03:00 07:00 Temp 99.2 98.2 98.8 99.2 98.2 98.8 Pulse 107 107 109 Resp 18 18 18 B/P (MAP) 151/88 (109) 125/75 (92) 149/89 (109) Pulse Ox 98 96 97 94 O2 Delivery Room Air Room Air Room Air O2 Flow Rate 3.0 08/13/18 08/13/18 07:57 09:00 Pulse Ox 97 O2 Delivery Room Air Room Air Intake and Output 08/12/18 08/12/18 08/13/18 14:59 22:59 06:59 Intake Total 540 ml 460 ml 200 ml Balance 540 ml 460 ml 200 ml SANDRA GRAMAJO MD Aug 13, 2018 09:57
--- NOTE | 2018-08-13 09:58 | PDOC ---
SUBJECTIVE Subjective Patient has .hydradenitis suppurativa under bilateral armpits. She had surgery at for this and did not follow up and did not tell providers here until Mother called nurses station and told staff. ID inspected and found this to be true. Nursing has sent a wound culture. For this reason, patient is not going home today. Stent is not bothering her right now, although she recently took a Percocet and this helped. . Her urine looks normal so far; denies dysuria. OBJECTIVE Objective Physical Exam: General appearance: Alert and Oriented Head: Normocephalic, without obvious abnormality Eyes: conjunctivae/corneas clear. PERRL, EOM's intact. Fundi benign Back: no CVA pain bilaterally on testing Lungs: Regular respirations, non labored breathing Abdomen: soft, non-tender bilaterally, obese . No masses, no organomegaly Pelvic: deferred Extremities: hydradenitis suppurativa under bilat armpits. Vital Signs Vital Signs Date Time Temp Pulse Resp B/P (MAP) Pulse Ox O2 Delivery O2 Flow Rate FiO2 08/13/18 09:00 Room Air 08/13/18 07:57 97 Room Air 08/13/18 07:00 98.8 109 18 149/89 (109) 94 Room Air 98.8 08/13/18 03:00 98.2 107 18 125/75 (92) 97 Room Air 98.2 08/13/18 00:03 96 3.0 08/13/18 00:01 99.2 107 18 151/88 (109) 98 Room Air 99.2 08/12/18 23:00 99.2 107 18 151/88 (109) 98 Room Air 99.2 08/12/18 20:00 Room Air 08/12/18 19:00 98.7 98 18 123/77 (92) 96 Room Air 98.7 08/12/18 17:37 94 Room Air 08/12/18 15:00 98.5 79 18 137/68 (91) 94 Room Air 98.5 08/12/18 12:00 97 Room Air 08/12/18 11:00 101.5 101 18 145/85 (105) 94 Room Air 101.5 08/12/18 10:48 97 Room Air I & O Intake and Output 08/13/18 07:00 Intake Total 1200 ml Balance 1200 ml Intake Oral 1200 ml # Voids 5 PHYSICAL EXAM Physical Exam Physical Exam: General appearance: Alert and Oriented Head: Normocephalic, without obvious abnormality Eyes: conjunctivae/corneas clear. PERRL, EOM's intact. Fundi benign Back: no CVA pain bilaterally on testing Lungs: Regular respirations, non labored breathing Abdomen: soft, non-tender bilaterally, obese . No masses, no organomegaly Pelvic: deferred Extremities: hydradenitis suppurativa under bilat armpits. ASSESSMENT/PLAN Assessment/Plan In light of new information, ID has switched patient antibiotics to Zosyn and added doxycycline. Nursing has sent wound culture Continue Supportive care We will treat for the UTI for the next 2 weeks. Will need to discharge with two weeks worth of PO antibiotics. Discussed with patient that Jayda, assistant professor of surgery for [employer] will be calling her after she is discharged. Give her until Monday and then call if no word from Jayda by then. Message sent to Jayda over [employer] system. Discussed with patient that it is normal to have red tinged or even rust colored urine with small clots while a stent is in place. Please call for very dark (wine colored) urine or large clots. COMMENT Lab Laboratory Tests Test 08/12/18 15:55 White Blood Count 9.8 x10^3/uL (4.0-11.0) Red Blood Count 4.60 x10^6/uL (3.50-5.40) Hemoglobin 10.2 g/dL (12.0-15.5) Hematocrit 32.2 % (36.0-47.0) Mean Corpuscular Volume 70 fL (79-100) Mean Corpuscular Hemoglobin 22 pg (25-35) Mean Corpuscular Hemoglobin Concent 32 g/dL (31-37) Red Cell Distribution Width 18.9 % (11.5-14.5) Platelet Count 194 x10^3/uL (140-400) Neutrophils (%) (Auto) 81 % (31-73) Lymphocytes (%) (Auto) 11 % (24-48) Monocytes (%) (Auto) 7 % (0-9) Eosinophils (%) (Auto) 0 % (0-3) Basophils (%) (Auto) 0 % (0-3) Neutrophils # (Auto) 7.9 x10^3uL (1.8-7.7) Lymphocytes # (Auto) 1.1 x10^3/uL (1.0-4.8) Monocytes # (Auto) 0.7 x10^3/uL (0.0-1.1) Eosinophils # (Auto) 0.0 x10^3/uL (0.0-0.7) Basophils # (Auto) 0.0 x10^3/uL (0.0-0.2) Sodium Level 138 mmol/L (136-145) Potassium Level 3.6 mmol/L (3.5-5.1) Chloride Level 105 mmol/L (98-107) Carbon Dioxide Level 24 mmol/L (21-32) Anion Gap 9 (6-14) Blood Urea Nitrogen 9 mg/dL (7-20) Creatinine 0.7 mg/dL (0.6-1.0) Estimated GFR (Cockcroft-Gault) 98.9 Glucose Level 120 mg/dL (70-99) Calcium Level 8.5 mg/dL (8.5-10.1) SOFIA STAUFFER APRN Aug 13, 2018 09:58
[2018-08-13] MEDS: DOXYCYCLINE HYCLATE 100 MG TABLET PO SCH ×2 (10:32→19:59)
[2018-08-13 11:01] LABS: BASO % 1 % (0-3); EOS % 1 % (0-3); HEMATOCRIT 32.8 % (36.0-47.0); HEMOGLOBIN 10.5 g/dL (12.0-15.5); LYMPH # 1.3 x10^3/uL (1.0-4.8); LYMPH % 15 % (24-48); MEAN CORPUSCULAR HEMOGLOBIN 22 pg (25-35); MEAN CORPUSCULAR HGB CONC 32 g/dL (31-37); MEAN CORPUSCULAR VOLUME 70 fL (79-100); MONO # 0.8 x10^3/uL (0.0-1.1); MONO % 10 % (0-9); NEUT # 6.4 x10^3uL (1.8-7.7); NEUT % 75 % (31-73); PLATELET COUNT 218 x10^3/uL (140-400); RED CELL DISTRIBUTION WIDTH 18.4 % (11.5-14.5); WHITE BLOOD COUNT 8.6 x10^3/uL (4.0-11.0)
[2018-08-13 11:13] LABS: CALCIUM 8.8 mg/dL (8.5-10.1); CREATININE 0.7 mg/dL (0.6-1.0); GFR 98.9; POTASSIUM 3.8 mmol/L (3.5-5.1)
--- NOTE | 2018-08-13 15:51 | NUR ---
Wound Care Wound care consult for abscesses from hidradenitis to bilateral axilla. Cleansed wounds, packed lightly with Aquacel Ag measurements on photo in chart rope, covered with ABD and secured with Hypafix tape. Recommend to change dressings daily and PRN for drainage. Pt will follow up in C upon discharge. No other wounds noted on full skin inspection. WC will continue to follow for possible changes
[2018-08-14] MEDS: PIPERACILLIN/TAZOBACTAM 3.375 GM in IV NORMAL SALINE 50ML 50 ML IV SCH ×3 (00:11→12:21)
[2018-08-14] MEDS: oxyCODONE/APAP 5/325 1 TAB TABLET PO PRN ×3 (00:12→12:20)
[2018-08-14] MEDS: IV NORMAL SALINE 1000ML BAG 1,000 ML IV SCH ×2 (00:15→10:15)
[2018-08-14 03:00] VITALS: BP 136/84
[2018-08-14 07:00] VITALS: BP 130/87
[2018-08-14] MEDS: LACTOBACILLUS RHAMNOSUS GG 1 CAPSULE. PO SCH (09:15)
[2018-08-14] MEDS: DOXYCYCLINE HYCLATE 100 MG TABLET PO SCH (09:15)
--- NOTE | 2018-08-14 09:19 | PDOC ---
Infectious Disease Note Subjective Subjective feeling good, no fever ROS ROS no n/v/d/sob Vital Sign Vital Signs Vital Signs Date Time Temp Pulse Resp B/P (MAP) Pulse Ox O2 Delivery O2 Flow Rate FiO2 08/14/18 07:00 97.6 84 16 130/87 (101) 95 Room Air 97.6 08/14/18 00:12 3.0 Physical Exam PHYSICAL EXAM GENERAL: The patient is propped up in bed, alert and eating. HEENT: Pupils equally round, reactive. Normal conjunctivae. Oropharynx pink and moist. NECK: Supple. LUNGS: Clear to auscultation. HEART: S1, S2. ABDOMEN: Obese, soft and nontender with bowel sounds present. EXTREMITIES: No gross edema or cyanosis. SKIN: Warm without rash. She has multiple tattoos. NEUROLOGIC: Alert and oriented x 3. LINES: Peripheral IV looks okay. Labs Lab Laboratory Tests Test 08/13/18 10:30 White Blood Count 8.6 x10^3/uL (4.0-11.0) Red Blood Count 4.70 x10^6/uL (3.50-5.40) Hemoglobin 10.5 g/dL (12.0-15.5) Hematocrit 32.8 % (36.0-47.0) Mean Corpuscular Volume 70 fL (79-100) Mean Corpuscular Hemoglobin 22 pg (25-35) Mean Corpuscular Hemoglobin Concent 32 g/dL (31-37) Red Cell Distribution Width 18.4 % (11.5-14.5) Platelet Count 218 x10^3/uL (140-400) Neutrophils (%) (Auto) 75 % (31-73) Lymphocytes (%) (Auto) 15 % (24-48) Monocytes (%) (Auto) 10 % (0-9) Eosinophils (%) (Auto) 1 % (0-3) Basophils (%) (Auto) 1 % (0-3) Neutrophils # (Auto) 6.4 x10^3uL (1.8-7.7) Lymphocytes # (Auto) 1.3 x10^3/uL (1.0-4.8) Monocytes # (Auto) 0.8 x10^3/uL (0.0-1.1) Eosinophils # (Auto) 0.0 x10^3/uL (0.0-0.7) Basophils # (Auto) 0.0 x10^3/uL (0.0-0.2) Sodium Level 135 mmol/L (136-145) Potassium Level 3.8 mmol/L (3.5-5.1) Chloride Level 103 mmol/L (98-107) Carbon Dioxide Level 23 mmol/L (21-32) Anion Gap 9 (6-14) Blood Urea Nitrogen 8 mg/dL (7-20) Creatinine 0.7 mg/dL (0.6-1.0) Estimated GFR (Cockcroft-Gault) 98.9 Glucose Level 118 mg/dL (70-99) Calcium Level 8.8 mg/dL (8.5-10.1) Micro URINE CULTURE Final Final report URINE CULTURE RES 1 Final Escherichia coli 25,000-50,000 colony forming units per mL Cefazolin <=4 ug/mL Cefazolin with an MARKO <=16 predicts susceptibility to the oral agents cefaclor, cefdinir, cefpodoxime, cefprozil, cefuroxime, cephalexin, and loracarbef when used for therapy of uncomplicated urinary tract infections due to E. coli, Klebsiella pneumoniae, and Proteus mirabilis. URINE CULTURE RES 2 Final Proteus mirabilis 25,000-50,000 colony forming units per mL Cefazolin <=4 ug/mL Cefazolin with an MARKO <=16 predicts susceptibility to the oral agents cefaclor, cefdinir, cefpodoxime, cefprozil, cefuroxime, cephalexin, and loracarbef when used for therapy of uncomplicated urinary tract infections due to E. coli, Klebsiella pneumoniae, and Proteus mirabilis. ANTIMICROBIAL SUSCEPTIBILITY Final Comment S = Susceptible; I = Intermediate; R = Resistant P = Positive; N = Negative MICS are expressed in micrograms per mL Antibiotic RSLT#1 RSLT#2 RSLT#3 RSLT#4 Amoxicillin/Clavulanic Acid S =4 S<=2 Ampicillin R>=32 S<=2 Cefepime S<=0.12 S<=0.12 Ceftriaxone S<=0.25 S<=0.25 Cefuroxime S =4 S<=1 Ciprofloxacin S<=0.25 S<=0.25 Ertapenem S<=0.12 S<=0.12 CONTINUED ON NEXT PAGE RUN DATE: 08/13/18 PAGE 2 RUN TIME: 1416 [facility] [address] [place] [address] Luke Wells M.D., Office Communication Professor Objective Assessment Complicated UTI , POA with growth of proteus and e coli Obstructive uropathy s/p left uretal stent placement on 08/11. (pus noted behind stone) Fever Leukocytosis, likely reactive in part due to steroids and procedure on 08/11. Obesity Tobacco dependency Plan Plan of Care ok to d/c on cipro no need for doxy for now pt to call my office in 2 days for results of axillary culture and depending on culture results may need appropriate antibiotics f/u with us in 7-10 days MAGAN WEINER MD Aug 14, 2018 09:18
[2018-08-14] MEDS ORDERED: CIPR500T94 PO (10:05)
--- NOTE | 2018-08-14 10:09 | PDOC3 ---
Discharge Summary Visit Information Date of Admission: Aug 14, 2018 Date of Discharge: Aug 14, 2018 Admitting Diagnosis Comment: Escherichia coli and Proteus UTI with negative blood cultures Fevers/sepsis Left ureteral stone status post stenting Renal colic-resolved Obesity, BMI 39.5 History hidradenitis suppurativa bilateral armpits-history of surgeryin [facility] 1 year ago Final Diagnosis Problems Medical Problems: (1) Hydronephrosis with urinary obstruction due to ureteral calculus Status: Acute (2) Lactic acidosis Status: Acute (3) Leukocytosis Status: Acute Brief Hospital Course Allergies Allergies Coded Allergies Type Severity Reaction Last Updated Verified No Known Drug Allergies 08/10/18 No Vital Signs Vital Signs Date Time Temp Pulse Resp B/P (MAP) Pulse Ox O2 Delivery O2 Flow Rate FiO2 08/14/18 08:00 Room Air 08/14/18 07:00 97.6 84 16 130/87 (101) 95 97.6 08/14/18 00:12 3.0 Lab Results Laboratory Tests Test 08/12/18 15:55 08/13/18 10:30 White Blood Count 9.8 x10^3/uL (4.0-11.0) 8.6 x10^3/uL (4.0-11.0) Red Blood Count 4.60 x10^6/uL (3.50-5.40) 4.70 x10^6/uL (3.50-5.40) Hemoglobin 10.2 g/dL (12.0-15.5) 10.5 g/dL (12.0-15.5) Hematocrit 32.2 % (36.0-47.0) 32.8 % (36.0-47.0) Mean Corpuscular Volume 70 fL (79-100) 70 fL (79-100) Mean Corpuscular Hemoglobin 22 pg (25-35) 22 pg (25-35) Mean Corpuscular Hemoglobin Concent 32 g/dL (31-37) 32 g/dL (31-37) Red Cell Distribution Width 18.9 % (11.5-14.5) 18.4 % (11.5-14.5) Platelet Count 194 x10^3/uL (140-400) 218 x10^3/uL (140-400) Neutrophils (%) (Auto) 81 % (31-73) 75 % (31-73) Lymphocytes (%) (Auto) 11 % (24-48) 15 % (24-48) Monocytes (%) (Auto) 7 % (0-9) 10 % (0-9) Eosinophils (%) (Auto) 0 % (0-3) 1 % (0-3) Basophils (%) (Auto) 0 % (0-3) 1 % (0-3) Neutrophils # (Auto) 7.9 x10^3uL (1.8-7.7) 6.4 x10^3uL (1.8-7.7) Lymphocytes # (Auto) 1.1 x10^3/uL (1.0-4.8) 1.3 x10^3/uL (1.0-4.8) Monocytes # (Auto) 0.7 x10^3/uL (0.0-1.1) 0.8 x10^3/uL (0.0-1.1) Eosinophils # (Auto) 0.0 x10^3/uL (0.0-0.7) 0.0 x10^3/uL (0.0-0.7) Basophils # (Auto) 0.0 x10^3/uL (0.0-0.2) 0.0 x10^3/uL (0.0-0.2) Sodium Level 138 mmol/L (136-145) 135 mmol/L (136-145) Potassium Level 3.6 mmol/L (3.5-5.1) 3.8 mmol/L (3.5-5.1) Chloride Level 105 mmol/L (98-107) 103 mmol/L (98-107) Carbon Dioxide Level 24 mmol/L (21-32) 23 mmol/L (21-32) Anion Gap 9 (6-14) 9 (6-14) Blood Urea Nitrogen 9 mg/dL (7-20) 8 mg/dL (7-20) Creatinine 0.7 mg/dL (0.6-1.0) 0.7 mg/dL (0.6-1.0) Estimated GFR (Cockcroft-Gault) 98.9 98.9 Glucose Level 120 mg/dL (70-99) 118 mg/dL (70-99) Calcium Level 8.5 mg/dL (8.5-10.1) 8.8 mg/dL (8.5-10.1) Laboratory Tests Test 08/13/18 10:30 White Blood Count 8.6 x10^3/uL (4.0-11.0) Red Blood Count 4.70 x10^6/uL (3.50-5.40) Hemoglobin 10.5 g/dL (12.0-15.5) Hematocrit 32.8 % (36.0-47.0) Mean Corpuscular Volume 70 fL (79-100) Mean Corpuscular Hemoglobin 22 pg (25-35) Mean Corpuscular Hemoglobin Concent 32 g/dL (31-37) Red Cell Distribution Width 18.4 % (11.5-14.5) Platelet Count 218 x10^3/uL (140-400) Neutrophils (%) (Auto) 75 % (31-73) Lymphocytes (%) (Auto) 15 % (24-48) Monocytes (%) (Auto) 10 % (0-9) Eosinophils (%) (Auto) 1 % (0-3) Basophils (%) (Auto) 1 % (0-3) Neutrophils # (Auto) 6.4 x10^3uL (1.8-7.7) Lymphocytes # (Auto) 1.3 x10^3/uL (1.0-4.8) Monocytes # (Auto) 0.8 x10^3/uL (0.0-1.1) Eosinophils # (Auto) 0.0 x10^3/uL (0.0-0.7) Basophils # (Auto) 0.0 x10^3/uL (0.0-0.2) Sodium Level 135 mmol/L (136-145) Potassium Level 3.8 mmol/L (3.5-5.1) Chloride Level 103 mmol/L (98-107) Carbon Dioxide Level 23 mmol/L (21-32) Anion Gap 9 (6-14) Blood Urea Nitrogen 8 mg/dL (7-20) Creatinine 0.7 mg/dL (0.6-1.0) Estimated GFR (Cockcroft-Gault) 98.9 Glucose Level 118 mg/dL (70-99) Calcium Level 8.8 mg/dL (8.5-10.1) Brief Hospital Course Ms. Pascual is a 28 old F admitted for UTI and kidney stone that needed stenting left. Escherichia coli UTI that is PANSENSITIVE, comanage with ID and urology. But course remarkable for fevers, we later realized or discovered that she has hydradenitis supp and was oozing pus like material. She did not tell us that. She had this issue for 1 year now and actually followed up with [facility] but did not follow through with them. Fluid was expressed from the axilla and sent to the lab and that is a send out. No more fevers. Cleared from ID to go on by mouth Cipro and to follow-up in a week's time as cultures will be out about in 2 days time regarding the drainage in the armpits Causes performed urology, ID Procedures performed left ureteral stent Discharge Information Condition at Discharge: Improved, Stable Follow Up: Weeks (ff up ID in 7 days) Disposition/Orders: D/C to Home Scheduled Ciprofloxacin Hcl (Cipro) 500 Mg Tablet, 1 TAB PO BID for uti, #20 Prescribed by: SANDRA GRAMAJO on 08/14/18 1005 Scheduled PRN Oxycodone/Apap 5-325 (Percocet 5-325 Mg Tablet ) 1 Each Tablet, 1 TAB PO PRN Q4HRS PRN for MODERATE - SEVERE PAIN MDD 1, #15 Prescribed by: SANDRA GRAMAJO on 08/13/18 0813 Phenazopyridine Hcl (Phenazopyridine Hcl) 200 Mg Tablet, 200 MG PO PRN TID PRN for URINARY PAIN MDD 1, #30 Prescribed by: SANDRA GRAMAJO on 08/13/18812 SANDRA GRAMAJO MD Aug 14, 2018 10:09
--- NOTE | 2018-08-14 10:14 | PDOC ---
SUBJECTIVE Subjective Patient doing ok today, still does not have much pain from stent or dysuria. OBJECTIVE Objective Physical Exam: General appearance: Alert and Oriented Head: Normocephalic, without obvious abnormality Eyes: conjunctivae/corneas clear. PERRL, EOM's intact. Fundi benign Back: no CVA pain bilaterally Lungs: Regular respirations, non labored breathing Abdomen: soft, obese, non-tender bilaterally Pelvic: deferred Vital Signs Vital Signs Date Time Temp Pulse Resp B/P (MAP) Pulse Ox O2 Delivery O2 Flow Rate FiO2 08/14/18 08:00 Room Air 08/14/18 07:00 97.6 84 16 130/87 (101) 95 Room Air 97.6 08/14/18 06:11 Room Air 08/14/18 03:00 98.6 88 18 136/84 (101) 96 Room Air 98.6 08/14/18 01:12 20 96 Room Air 08/14/18 00:12 20 96 Room Air 3.0 08/13/18 23:00 98.3 84 16 139/99 (112) 96 Room Air 98.3 08/13/18 20:00 Room Air 08/13/18 19:00 99.7 91 16 153/88 (109) 97 Room Air 99.7 08/13/18 17:23 Room Air 08/13/18 15:00 98.8 81 16 137/75 (95) 97 Room Air 98.8 08/13/18 11:00 98.8 99 16 124/80 (95) 96 Room Air 98.8 I & O Intake and Output 08/14/18 06:59 # Voids 9 PHYSICAL EXAM Physical Exam Physical Exam: General appearance: Alert and Oriented Head: Normocephalic, without obvious abnormality Eyes: conjunctivae/corneas clear. PERRL, EOM's intact. Fundi benign Back: no CVA pain bilaterally Lungs: Regular respirations, non labored breathing Abdomen: soft, obese, non-tender bilaterally Pelvic: deferred ASSESSMENT/PLAN Assessment/Plan Message was sent to [facility] regarding patient yesterday. She will need URS in the next two weeks. Pt had fever of 99.7 yesterday at 7 pm, otherwise afebrile. Continue antibiotics. ID has switched patient yesterday to Zosyn and added doxycycline for hydradenitis suppurativa. Nursing has sent wound culture Continue Supportive care We will treat for the UTI for the next 2 weeks. Will need to discharge with two weeks worth of PO antibiotics. Discussed with patient that it is normal to have red tinged or even rust colored urine with small clots while a stent is in place. Please call for very dark (wine colored) urine or large clots. Problems: (1) Hydronephrosis with urinary obstruction due to ureteral calculus (2) UTI (urinary tract infection) COMMENT Lab Laboratory Tests Test 08/13/18 10:30 White Blood Count 8.6 x10^3/uL (4.0-11.0) Red Blood Count 4.70 x10^6/uL (3.50-5.40) Hemoglobin 10.5 g/dL (12.0-15.5) Hematocrit 32.8 % (36.0-47.0) Mean Corpuscular Volume 70 fL (79-100) Mean Corpuscular Hemoglobin 22 pg (25-35) Mean Corpuscular Hemoglobin Concent 32 g/dL (31-37) Red Cell Distribution Width 18.4 % (11.5-14.5) Platelet Count 218 x10^3/uL (140-400) Neutrophils (%) (Auto) 75 % (31-73) Lymphocytes (%) (Auto) 15 % (24-48) Monocytes (%) (Auto) 10 % (0-9) Eosinophils (%) (Auto) 1 % (0-3) Basophils (%) (Auto) 1 % (0-3) Neutrophils # (Auto) 6.4 x10^3uL (1.8-7.7) Lymphocytes # (Auto) 1.3 x10^3/uL (1.0-4.8) Monocytes # (Auto) 0.8 x10^3/uL (0.0-1.1) Eosinophils # (Auto) 0.0 x10^3/uL (0.0-0.7) Basophils # (Auto) 0.0 x10^3/uL (0.0-0.2) Sodium Level 135 mmol/L (136-145) Potassium Level 3.8 mmol/L (3.5-5.1) Chloride Level 103 mmol/L (98-107) Carbon Dioxide Level 23 mmol/L (21-32) Anion Gap 9 (6-14) Blood Urea Nitrogen 8 mg/dL (7-20) Creatinine 0.7 mg/dL (0.6-1.0) Estimated GFR (Cockcroft-Gault) 98.9 Glucose Level 118 mg/dL (70-99) Calcium Level 8.8 mg/dL (8.5-10.1) SOFIA STAUFFER APRN Aug 14, 2018 10:14
[2018-08-14 11:00] VITALS: BP 136/77
--- NOTE | 2018-08-14 13:35 | NUR ---
Pt discharged home with self care. Discharge instructions and prescriptions discussed. Pt verbalized understanding. Pain meds administered. IV removed by MARKETING UNDERWRITER. VSS. Pt packed belongings herself. Pt assisted to wheelchair and was secured in vehicle with family.
[2018-09-11] MEDS ORDERED: MULT1TAB52 PO (11:25)
[2018-09-11] MEDS ORDERED: IBUP-1227 PO (11:26)
[2018-09-12] MEDS ORDERED: SULF1TAB24 PO ×2 (11:38→11:57)
[2018-09-12] MEDS ORDERED: HYDR-3164 PO ×2 (11:40→11:56)
== END 2018-08-14 13:39 | disposition home or self-care (01) | DRG 854 ==
LOC: ER 03:26 → 4 NORTH 05:15
PROVIDERS: ADMIT Internal Medicine; ATTEND Internal Medicine
PROC: BT1F1ZZ Fluoroscopy of Left Kidney, Ureter and Bladder using Low Osmolar Contrast (ICD-10-PCS; 2018-08-10)
PROC: 0T778DZ Dilation of Left Ureter with Intraluminal Device, Via Natural or Artificial Opening Endoscopic (ICD-10-PCS; principal; 2018-08-10 14:00)
DX: A41.9 Sepsis, unspecified organism (principal); N13.6 Pyonephrosis; B96.20 Unspecified Escherichia coli [E. coli] as the cause of diseases classified elsewhere; E66.9 Obesity, unspecified; B96.4 Proteus (mirabilis) (morganii) as the cause of diseases classified elsewhere; L73.2 Hidradenitis suppurativa; F17.210 Nicotine dependence, cigarettes, uncomplicated; Z68.39 Body mass index [BMI] 39.0-39.9, adult; Z87.442 Personal history of urinary calculi
CPT/HCPCS: 36415; 74176; 76000; 80048; 80053; 80170; 81001; 81025; 83605; 83690; 83735; 85007; 85025; 87040; 87071; 87075; 87086; 87186; 96361; 96374; 96375; A7015; C1769; C2617; J0696; J0744; J1100; J1580; J1885; J2001; J2270; J2405; J2543; J2704; J2765; J3010; J7030; Q9967; 99285-25

== ENCOUNTER 2018-09-12 09:33 | Day surgery (SDC) | payer OTHER ==
[~2018-09-12] VITALS: Ht 162.6 cm; Wt 104.3 kg
[~2018-09-12 09:33] MED LIST: CIPR500T94 PO; CIPROFLOXACIN 400MG PREMIX 200 ML IV PRN; HYDROmorphone 2 MG/ML VIAL IV PRN; IBUP-1227 PO; IV RINGERS,LACTATED 1000ML 1,000 ML IV SCH; MORPHINE SULFATE 2 MG/ML VIAL. IV PRN; MULT1TAB52 PO; OXYC1TAB15 PO; PHEN-444 PO; PROCHLORPERAZINE 10 MG/2 ML VIAL. IV PRN; fentaNYL PF VIAL 100 MCG/2 ML VIAL IV PRN
[2018-09-12] MEDS ORDERED: LIDOCAINE 2% PF 5 ML VIAL. ONE (10:18)
[2018-09-12] MEDS ORDERED: MIDAZOLAM HCL/PF 2 MG/2 ML VIAL. ONE (10:18)
[2018-09-12] MEDS ORDERED: ONDANSETRON PF 4 MG/2 ML VIAL. ONE (10:18)
[2018-09-12] MEDS ORDERED: PROPOFOL 20 ML IV ONE (10:18)
[2018-09-12] MEDS ORDERED: DEXAMETHASONE SOD PHOS 20 MG/5 ML VIAL. ONE (10:18)
[2018-09-12] MEDS ORDERED: fentaNYL PF VIAL 100 MCG/2 ML VIAL ONE (10:19)
[2018-09-12 10:35] LABS: U PREG PATIENT NEGATIVE (NEG)
[2018-09-12] MEDS ORDERED: SEVOFLURANE 31 TO 60 MINUTES. IH ONE (11:27)
[2018-09-12] MEDS ORDERED: ePHEDrine PF IN SALINE 50 MG/10 ML SYRINGE. IV ONE (11:30)
--- NOTE | 2018-09-12 11:36 | PDOC4 ---
OPERATIVE NOTE Date: Date: Sep 12, 2018 Pre-Op Diagnosis: left ureter stone Post-Op Diagnosis: same Procedure Performed: left urs with laser and stent exchange Surgeon: Anesthesia Type: ga Blood Loss: 0ml Specimans Obtained: stone Findings: left distal stone Complications: none evident SAMIA ZACARIAS MD Sep 12, 2018 11:36
[2018-09-12] MEDS ORDERED: SULF1TAB24 PO ×2 (11:38→11:57)
[2018-09-12] MEDS ORDERED: HYDR-3164 PO ×2 (11:40→11:56)
--- NOTE | 2018-09-12 11:40 | DISCH ---
DISCHARGE INSTRUCTIONS Condition on Discharge Condition on Discharge: Stable Activity After Discharge Activity Instructions for Disc: Activity as tolerated Diet after Discharge Diet after Discharge: Regular Wound Incision Care Wound/Incision Care: Change dressing, Other, see below (stay hydrated, some blood in urione is ok) Contacting the after DC Call your doctor for: If your condition worsens SAMIA ZACARIAS MD Sep 12, 2018 11:40
[2018-09-12 12:40] VITALS: BP 118/64
--- NOTE | 2018-09-12 12:44 | OP ---
DATE OF SURGERY: 09/12/2018 PREOPERATIVE DIAGNOSIS: Left distal ureteral stone. POSTOPERATIVE DIAGNOSIS: Left distal ureteral stone. PROCEDURE: Left ureteroscopy with laser lithotripsy and stent exchange. SURGEON: Roslyn Smith M.D. ANESTHESIA: General. CONDITION: Stable. COMPLICATIONS: None. ESTIMATED BLOOD LOSS: 1 mL. FINDINGS: Left distal ureteral stone removed entirely. PROCEDURE IN DETAIL: The patient was taken back to the procedure room and placed under general anesthesia in supine position per the protocol. She was prepped and draped in a usual sterile fashion in dorsal lithotomy position. A timeout was performed. SCDs were attached. IV antibiotics were administered. The 21-Peruvian rigid cystoscope was advanced per urethra into the bladder. Careful systemic review of the bladder visualized preexisting stents on the left side with no stone noted in the bladder. This was grabbed and brought to the meatus and cannulated with a sensor wire. Fluoroscopy showed wire going up into the kidney. A wire was attached to the drape for safety. A semirigid ureteroscope was advanced into the distal ureter. Stone was visualized and pulverized into smaller pieces with a 365 nanometer laser fiber. All leads were removed with the basket. On final inspection, she had some bullous edema noted at the UO. Therefore, it was decided to replace the stent for the next 72-96 hours. This was done under fluoroscopy guidance. The patient's bladder was emptied. Strings were externalized to the left thigh with Mastisol and Tegaderm. She will follow up with me in 2 weeks. She was sent home with pain medication and antibiotics. ROSLYN SMITH MD DR: FERNANDO/mariela JOB#: [id number] / [id number]
== END 2018-09-12 12:40 | disposition home or self-care (01) ==
LOC: SURG 09:33
PROVIDERS: ATTEND Urology
DX: N20.1 Calculus of ureter (principal); Z98.890 Other specified postprocedural states
CPT/HCPCS: 52356; 76000; 81025; A7015; C1769; C2617; J0171; J0744; J1100; J2001; J2250; J2405; J2704; J3010